=== PATIENT | female | born 1960 | race Caucasian/White ===

== ENCOUNTER → 2021-05-09 | Outpatient (CLI) | payer SELFPAY ==
--- NOTE | 2021-05-09 12:00 | EMB_PTH ---
PATIENT: ANN PADILLA LOC: [facility] U#:[id number] AGE/SX: 61/F ROOM: RE05/09/[address]: Dr. Yoon Epps DO : 1960 BED: DIS: 05/09/2021 SPEC #: [id number] RECD: 05/09/21 16:02 STATUS: JOSEPH BRITTANY #: [id number] RAYSHAWN: 05/09/21 12:[address]: Yoon Epps DEPT: SURGICAL PATHOLOGY RECD BY: Marina Rascon ENTERED: 05/10/21 08:27 SP TYPE: ENDOM BX/C LUIS MANUEL DR: Dr. Lulu Conteh DO Tissues: Endometrium, NOS Procedures: Surgery Specimen Level IV HEADER OPERATION: Endometrial biopsy PRE-OP DIAGNOSIS: PMB TISSUE SUBMITTED: Endometrial biopsy MICROSCOPIC DIAGNOSIS Endometrial biopsy: Disordered proliferative endometrium. SJ:martina 05/14/2021 MICROSCOPIC DESCRIPTION Slides are reviewed. GROSS DESCRIPTION Received is one container labeled with the patient's name and not further designated. The specimen consists of multiple irregular fragments of light to dark guallpa soft tissue that in aggregate measure 3 x 2.2 x 0.1 cm. The specimen is totally submitted in one cassette. / AM:martina 05/10/21 TC:5 CPT: 72156
== END | disposition home or self-care (01) ==
LOC: LABSPEC 16:15
PROVIDERS: PCP Family Medicine; Referring Provider Obstetrics & Gynecology; Visit Provider Obstetrics & Gynecology
DX: N95.0 Postmenopausal bleeding (principal)
CPT/HCPCS: 88305

== ENCOUNTER 2022-01-22 07:43 | Day surgery (SDC) | payer SELFPAY, OTHER ==
--- NOTE | 2022-01-22 | EMB_PTH ---
PATIENT: ANN PADILLA LOC: [facility] [place] U#:[id number] AGE/SX: 61/F ROOM: RE01/22/[address]: Dr. Kenna Beverly MD : 1960 BED: DIS: 01/22/2022 SPEC #: [id number] RECD: 01/22/22 10:35 STATUS: JOSEPH REQ #: [id number] RAYSHAWN: 01/22/22 00:[address]: Kenna Beverly DEPT: SURGICAL PATHOLOGY RECD BY: [facility] ENTERED: 01/22/22 11:13 SP TYPE: ENDOM BX/C LUIS MANUEL DR: Dr. Lulu Conteh DO Tissues: A - Endometrium, NOS B - Endometrium, NOS Procedures: Frozen Section (charge) Frozen Section Add'l ([facility]) Surgery Specimen Level IV HEADER OPERATION: Hysteroscopy, D & C PRE-OP DIAGNOSIS: Postmenopausal bleeding, [address] scan TISSUE SUBMITTED: A - Endometrial curettings, frozen section, B - Endometrial curettings FROZEN SECTION DIAGNOSIS Endometrium, curettings: Simple hyperplasia with focal complex hyperplasia without atypia. No evidence of carcinoma. AM:martina 01/22/2022 Case has been reviewed in consultation with Dr. Chow who concurs with the above diagnosis. IDC:BIJAL MICROSCOPIC DIAGNOSIS A. Endometrium, curettings: Simple and focal complex hyperplasia without atypia. B. Endometrium, curettings: Simple and focal complex hyperplasia without atypia. AM:martina 01/23/2022 COMMENT Reference is made to the patient's previous endometrial biopsy from 2020 ([id number]) in which disordered proliferative endometrium was identified. Case has been reviewed in consultation with Dr. Chow who concurs with the above diagnosis. IDC:BIJAL MICROSCOPIC DESCRIPTION Slides are reviewed. GROSS DESCRIPTION A - Received fresh for frozen section diagnosis labeled with the patient's name is a specimen designated endometrial curettings. The specimen consists of multiple fragments of hemorrhagic soft tissue measuring 5 x 3 x 0.2 cm. The entire specimen is submitted for frozen section diagnosis in two cassettes. / AM:martina 01/22/2022 B - Received in fixative is one container labeled with the patient's name and designated endometrial curettings. The specimen consists of multiple irregular fragments of pink soft tissue that in aggregate measure 1.5 x 1 x 0.2 cm. The specimen is totally submitted in one cassette. / SJ:martina 01/22/2022 TC:5 CPT: 13549 x2, 30851, 63093
[2022-01-22 08:19] VITALS: BP 147/99; PULSE 97; RESP 18; TEMP 36.3; O2SAT 96; BMI 40.8
[2022-01-22] MEDS: Lactated Ringers 1,000 ML 15 ML IV (08:25)
--- NOTE | 2022-01-22 09:55 | PCM.HP.BLA ---
History and Physical MR#: [id number] Acct: [id number] Name:ANN CARLOS Rep #: [id number] : 1960 ? ? Provider: Dr. Kenna Beverly MD Age/Sex:? 61/F ? ? Location: [facility] [place] Status: Signed Intake Vital Signs ? 01/08/2213:31 01/08/2213:35 Height 5 ft 1 in 5 ft 1 in Weight: ? 217 lb BMI ? 41.0 Intake Visit Reasons:?discuss D&C, pt bleeding again Chief Complaint: surgical consult Siding Stapler Required: No Is patient in pain?: No Allergies No Known Allergies Allergy (Verified 05/09/21 11:50) Medications lisinopril 10 mg tablet 10 mg PO DAILY 05/09/21 [History Confirmed 01/08/22] megestrol 40 mg tablet 40 mg PO .COMPLEX #45 tabs 11/23/21 [Rx] Is last menstrual period known: No Post menopausal: Yes Patient : No [facility] Medical History?(Updated 01/08/22 @ 13:[address] Kenna Beverly MD) Hypertension Family History? Father Heart diseaseMother CVA (cerebral vascular accident) Social History? Smoking Status:? Never smoker alcohol intake:? never substance use type:? does not use caffeine:? Yes what type of physical activity do you participate in:? none additional social history:? - Brooks HPI discuss D&C, pt bleeding again Details: ANN PADILLA is a 61 year old who presents for persistent bleeding postmenopausal.? she had a previous biopsy that showed a nl emb.? she is still having bleeding and had a ct scan that showed a thickened 2 cm lining.? she has had some spotting to heavier bleeding at times more weeks.? she had bleeding heavy enough they went to the ER in the November. Pregancy History ? ? ? 8 ? Elective abortions ? Hx Para ? ? ? 6 ? Spontaneous abortions ? Hx # Term Pregnancies ? Ectopic pregnancies ? Hx # Pregnancies ? Multiple births ? # of living children ? ROS Const Constitutional: Denies fatigue, fever(s), headache(s), increased appetite, poor appetite, weight gain or weight loss Cardio Card: Denies chest pain Resp Resp: Denies cough or dyspnea GI GI: Reports as per HPI; Denies abdominal pain, constipation, nausea or vomiting : Reports as per HPI, urinary incontinence and vaginal discharge; Denies difficulty voiding, dysuria, nipple discharge, urinary frequency, urinary hesitancy, urinary urgency, vaginal dryness, vaginal odor or vaginal pruritus Skin Skin/Breast: Denies change in hair, breast mass, breast pain, breast skin changes or nipple discharge Exam Const General: cooperative, healthy appearing, comfortable, no acute distress and well developed Nutritional Appearance: average body habitus Orientation: alert HENRI Head: normal to inspection and normocephalic Neck Neck: normal visual inspection and trachea midline Thyroid: thyroid normal Resp Effort & Inspection: normal respiratory effort GI Inspection: normal to inspection and non-distended Palpation: soft and no hepatosplenomegaly Skin General: no rashes or lesions noted Coding Level of Care Code Off vis,est,level 4 Diagnoses Postmenopausal bleeding? N95.0 Assessment and Plan Assessment and Plan (1) Postmenopausal bleeding: ?Status:?Acute ?Comment: [address] scan, persistent. plan d and c hysteroscopy Plan After discussing the patient's diagnosis and treatment plan options, patient wishes to proceed with surgical management.? I have discussed with the patient the risks, benefits, and alternatives of the procedure which include but are not limited to risks of anesthesia, bleeding, infection, possible damage to bowel, bladder, or surrounding vasculature which could lead to additional surgery to evaluate any complications.? Patient agrees to procedure and wishes to proceed.? ACOG/uptodate references given for additional information regarding procedure.? UPDATE- I have seen the patient and performed any clinically relevant updates to the history and physical exam. Kenna Beverly MD
--- NOTE | 2022-01-22 10:30 | OP.PCM_ITS ---
Problems Associated Problem List Diagnoses (1) Postmenopausal bleeding: Report of Operation Date of Procedure: 01/22/22 Pre-Operative Diagnosis: see problem list Post-Operative Diagnosis: same Surgery/Procedure Performed:: D&C hysteroscopy Description of Surgical Findings:: global pathology thickened lining polypoid very soft uterus with fleshy, feathery tissue globally, suspicious for cancer superintendent oil well services: None Type of Anesthesia: Local MAC Special Medications: floseal Specimen's removed: EMC Drains: none Estimated Blood Loss (mL): 50 Fluids Replaced: crystalloid Description of Procedure: Patient was prepped and draped in a normal sterile fashion under MAC anesthesia. A weighted speculum was placed in the vagina and the anterior lip of the cervix was grasped with a single-tooth tenaculum. Cervix was progressively dilated to allow passage of a 5 mm hysteroscope. The lining was fully visualized and noted to have global thickening with significantly abnormal in appearance lining . Uterine sounded to 10 cm. Curettage was performed and large amount of tissue removed , sent to pathology. due to the concern for cancer and risk for bleeding postop, frozen specimen sent and floseal placed inside the lining of the uterus. All instruments were removed from the vagina and excellent hemostasis was noted. Patient was awoken and taken to recovery in stable c ondition. Grafts/Implants Used: none Complications none Admit VTE Documentation VTE Present on Admission: No VTE Mechan Device Prophylaxis: SCD's Multi Select Codes Urinary/Genital Urinary/Genital CPT Codes: 83208 Hysteroscopy,EMC, Polypectomy
--- NOTE | 2022-01-22 10:34 | DCINST_ITS ---
Discharge Instructions Procedure D&C Diet Discharge Diet: No restrictions Activity Discharge Activity: Return to Normal Activity, May Shower and May Take a Tub Bath (after 1 week) May resume sexual activity in: 1-2 weeks Weight Bearing Status: Weight bearing as tolerated Lifting Restrictions: none Dressing / Incision Call your doctor if you observe: Fever of 101 or Higher, Using more than 1 pad per hour, Shortness of breath and Uncontrolled pain Follow Up Care Please Follow Up With: Kenna Beverly MD When: Call [phone] to schedule appointment. Test Results: Test results from this visit will be discussed in further detail at your follow- up appointment, if applicable. Discharge Plan Admission Primary Reason for Your Visit: d and c Attending Provider: Kenna Beverly Primary Care Provider: Lulu Conteh Discharge Orders/Prescriptions Prescriptions: No Action lisinopril 10 mg tablet 10 mg PO DAILY Referrals / Follow Up: Lulu Conteh DO [Primary Care Provider] - Disposition Disposition (needs filled in before D/C Order can be placed): Home, Self Care
[2022-01-22 10:36] VITALS: BP 139/86; BP 147/99; PULSE 88; RESP 16; TEMP 36.6; O2SAT 98
[2022-01-22 10:41] VITALS: BP 133/86; BP 147/99; PULSE 85; RESP 16; O2SAT 99
[2022-01-22 10:46] VITALS: BP 145/79; BP 147/99; PULSE 83; RESP 16; O2SAT 99
[2022-01-22 10:51] VITALS: BP 130/82; BP 147/99; PULSE 81; RESP 16; TEMP 36.5; O2SAT 99
[2022-01-22 12:05] VITALS: BP 113/58; BP 147/99; PULSE 78; RESP 14; TEMP 36.1; O2SAT 97
== END 2022-01-22 13:38 | disposition home or self-care (01) ==
LOC: SDC 07:52 → AC 07:53
PROVIDERS: PCP Family Medicine; Referring Provider Obstetrics & Gynecology; Visit Provider Obstetrics & Gynecology
PROC: 0UB98ZZ Excision of Uterus, Via Natural or Artificial Opening Endoscopic (ICD-10-PCS; CPT 58558; principal; 2022-01-22 09:15)
DX: N85.01 Benign endometrial hyperplasia (principal); I10 Essential (primary) hypertension
CPT/HCPCS: 58558; 86850; 86900; 86901; 88305; 88331; 88332; J7120; J2405

== ENCOUNTER 2022-02-21 12:32 | Inpatient (IN) | payer OTHER, SELFPAY ==
[2022-02-21] VITALS (12 sets, daily range): BP systolic 113–150; BP diastolic 69–106; PULSE 99–138; RESP 18–32; TEMP 36.2–38.1; O2SAT 94–99; BMI 47.2; BMI 40.1
[2022-02-21 13:40] LABS: Absolute Lymphocyte Count 1.23 X10^3/uL (0.83-4.51); Absolute Neutrophil Count 26.9 X10^3/uL (2.0-7.7); Basophil# 0.08 X10^3/uL; Basophil% 0.3 % (0-1); Eosinophil# 0.11 X10^3/uL; Eosinophils% 0.4 % (0-5); Hemoglobin 13.3 g/dL (12.0-15.0); Lymphocyte # 1.23 X10^3/ul (0.83-4.51); Mean Corp Hgb Conc 32.4 g/dL (32-36); Mean Corpuscular Hgb 29.9 pg (27.0-32.0); Mean Corpuscular Volume 92.1 fL (81-99); Mean Platelet Vol. 10.2 fl (6.2-12.0); Monocyte# 2.09 X10^3/uL; Monocyte% 6.8 % (0-10); NRBC Flagged by Analyzer 0 % (0-5); Neutrophil % 87.4 % (47-70); POSITIVE COUNT YES; POSITIVE DIFFERENTIAL YES; Platelet Count 278 K/mm3 (150-450); RBC Distribution Width CV 15.5 % (11.6-14.6); RBC Distribution Width SD 53.1 fl (35.1-43.9); Red Blood Count 4.45 M/mm3 (4.2-5.4); White Blood Count 30.7 K/mm3 (4.4-11.0)
[2022-02-21 13:47] LABS: Differential Indicated SCAN CRITERIA MET
--- NOTE | 2022-02-21 13:53 | EX.ED.DYSGE1 ---
HPI History of Present Illness Chief Complaint: Complaint Detail of Chief Complaint: Dysuria, weakness Informant: patient Narrative Narrative: Patient presents to the emergency department with complaint of dysuria that been going on for about a week and a half. Patient was being seen at preadmission testing for preop labs as she is scheduled to have a hysterectomy with Dr. Samuel Vaughan. Patient was noted to have a urinary tract infection and sent to the emergency department. Patient has had some increased confusion over the last several days per her . Patient very weak. She had a fever last night. Patient denies chest pain or abdominal pain. Patient denies back pain. Prior similar symptoms: No PFSH PFSH Medical History (Updated 02/21/22 @ 15:[address] Yamini Graff, DO) Depression Hypertension Non-smoker Walker as ambulation aid Wears dentures Home Medications lisinopril 10 mg tablet 10 mg PO DAILY 05/09/21 [History Last Taken Unknown] Allergy/AdvReac Type Severity Reaction Status Date / Time No Known Allergies Allergy Verified 02/21/22 12:39 Family History Father Heart disease Mother CVA (cerebral vascular accident) Surgical History (Updated 02/21/22 @ 15:[address] Lori Cool MD) H/O dilation and curettage Social History (Updated 02/21/22 @ 15:[address] Lori Cool MD) household members: spouse Smoking Status: Never smoker alcohol intake: never substance use type: does not use caffeine: Yes what type of physical activity do you participate in: none additional social history: - Brooks ROS ROS ED Review of Systems ROS Unobtainable: other Constitutional Constitutional ED: Reports lethargy; Denies chills, fever(s), sweats or weight loss Eyes Eyes: Denies blurry vision, change in vision or diplopia ENT ENT ED: Denies rhinorrhea or sore throat Cardiovascular Cardiovascular: Denies chest pain, orthopnea or racing heartbeat Respiratory/Chest Respiratory/Chest: Denies cough, dyspnea, dyspnea on exertion, orthopnea or sputum Gastrointestinal Gastrointestinal: Denies abdominal pain, diarrhea, nausea or vomiting Genitourinary Genitourinary ED: Reports dysuria; Denies hematuria or urinary frequency Musculoskeletal Musculoskeletal: Denies arthralgias, back pain, myalgias or neck pain Integumentary Denies abscess, Abrasions or rash Neurologic Neurologic: Reports weakness; Denies headache(s) Psychiatric Psychiatric: Denies anxiety, depression or suicidal thoughts Endocrine Endocrinology: Denies polydipsia, polyphagia or polyuria Hematologic/Lymphatic Hematologic/Lymphatic: Denies easy bleeding, easy bruising or lymphadenopathy Allergic/Immunologic Allergic/Immunologic ED: Denies mouth swelling, tongue swelling or urticaria EXAM Physical Exam Const Vital Signs: 02/21/22 12:34 02/21/22 12:56 02/21/22 14:15 Temperature 97.2 F L 97.9 F 98.6 F Temperature Source Temporal Temporal Temporal Pulse Rate 120 H 138 H 104 H Respiratory Rate 18 26 H 20 H Blood Pressure 131/83 H 138/94 H 136/82 H Blood Pressure Mean 99 108 100 Pulse Ox 97 97 97 Oxygen Delivery Method Room Air Room Air Room Air 02/21/22 14:15 02/21/22 15:12 02/21/22 15:12 Temperature 98.6 F 98.8 F Temperature Source Temporal Temporal Pulse Rate 104 H 106 H 106 H Respiratory Rate 20 H 24 H 24 H Blood Pressure 136/82 H 125/85 H 125/85 H Blood Pressure Mean 100 98 98 Pulse Ox 97 96 96 Oxygen Delivery Method Room Air Room Air Room Air Positive well nourished and well developed General Appearance ED: well developed and NAD HEENT Reports TM's clear and dry mucous membranes normocephalic and atraumatic; Negative for trauma or tenderness Tympanic Membrane ED: Yes TM's clear Mouth ED: Yes dry mucous membranes Mouth: dry mucous membranes Eyes PERRL and EOMs intact bilaterally General Eye ED: Negative for pale conjunctiva or scleral icterus Neck no lymphadenopathy, supple and no JVD General: Negative for tenderness Chest Wall inspection of chest normal and palpation of chest normal Chest: Negative for tenderness Resp normal respiratory effort and clear to auscultation bilaterally Effort and Inspection: Negative for respiratory distress or pain with movement Auscultation: Negative for rhonchi, wheezes or diminished lung sounds Cardio regular rhythm, S1 normal heart sound, S2 normal heart sound and no murmurs; Negative for regular rate Rate: tachycardic Peripheral Pulses: pulses 2+ throughout GI normal to inspection, nondistended, normoactive bowel sounds, soft to palpation, non-tender, non-distended and no masses Back/Spine no CVA tenderness and no thoracic nor lumbar tenderness Extremity normal to inspection General Extremety ED: Negative for edema General Extremity: Negative for edema Neuro oriented x3, CN's II-XII intact bilaterally, no sensory deficits noted and gait normal Sensorium / Orientation: awake, alert, oriented to person, oriented to place and oriented to time Motor Exam: strength 5/5 throughout and strength abnormal Psych mental status grossly normal Skin no rashes or lesions noted and no wounds MDM MDM MDM Narrative Medical decision making narrative: IV line established on arrival. Patient was given a liter mostly of fluid bolus. Patient started on Rocephin 1 g IV. Patient noted to have an elevated white count of 30,000. Lactate was 1.5. Chemistries unremarkable. BUN was 34 and creatinine 2.3. Case discussed with hospitalist will evaluate patient for admission for diagnosis of UTI, sepsis, DANNY. Lab Data Attestation: I reviewed the patient's lab results. Labs: Laboratory Results - last 24 hr 02/21/22 02/21/22 02/21/22 13:30 13:30 13:30 WBC 30.7 H* RBC 4.45 Hgb 13.3 Hct 41.0 MCV 92.1 MCH 29.9 MCHC 32.4 RDW Std Deviation 53.1 H RDW Coeff of Gauri 15.5 H Plt Count 278 MPV 10.2 Immature Gran % (Auto) 1.100 H Neut % (Auto) 87.4 H Lymph % (Auto) 4.0 L [place] % (Auto) 6.8 Eos % (Auto) 0.4 Baso % (Auto) 0.3 Absolute Neuts (auto) 26.9 H Absolute Lymphs (auto) 1.23 Nucleated RBC % 0 Diff Path Review May foll Sodium 137 Potassium 4.7 Chloride 106 Carbon Dioxide 24.0 Anion Gap 7 BUN 34 H Creatinine 2.30 H Estim Creat Clear Calc 18.89 Est GFR (MDRD) Af Amer 28 L Est GFR (MDRD) Non-Af 23 L BUN/Creatinine Ratio 14.8 Glucose 157 H Lactic Acid 1.5 Calcium 10.3 H EKG Initial EKG: Attestation: I personally reviewed and interpreted this EKG as follows: Comments: Sinus rhythm with a ventricular rate of 148 bpm with no acute ST segment changes Discharge Plan Triage Chief Complaint: Complaint ED Provider: Yamini Graff Dx/Rx/DC Orders Clinical Impression: UTI (urinary tract infection), DANNY (acute kidney injury), Sepsis, Leukocytosis Prescriptions: No Action lisinopril 10 mg tablet 10 mg PO DAILY Primary Care Provider: Lulu Conteh Referrals: Lulu Conteh DO [Primary Care Provider] - Disposition Disposition: Acute Care Hospital [facility]
[2022-02-21 14:02] LABS: Anion Gap 7 (5-15); BUN 34 mg/dL (7-18); BUN/Creat Ratio 14.8 RATIO (10-20); Calcium,Total 10.3 mg/dL (8.5-10.1); Chloride 106 mmol/L (98-107); EST Glomerular Filtration Rate 23 mL/min (>60); Est Glom Filt Rate - Afr Amer 28 mL/min (>60); Estimated Creatinine Clearance 18.89 ml/min; Glucose 157 mg/dL (74-106); Potassium 4.7 mmol/L (3.5-5.1); Sodium Level 137 mmol/L (136-145)
[2022-02-21 14:07] LABS: Lactic Acid 1.5 mmol/L (0.4-1.9)
[2022-02-21] MEDS: 0.9% Normal Saline 1,000 ML 1000 ML IV (14:16)
[2022-02-21] MEDS: Ceftriaxone 1 GM/50 ML BAG IV (14:16)
[2022-02-21] MEDS: 0.9% Normal Saline 1,000 ML 150 ML IV (15:11)
--- NOTE | 2022-02-21 15:38 | PCM.HP.STD ---
HPI - General General Date of Admission: 02/21/22 Date of Service: 02/21/22 Chief Complaint: Encephalopathy, UTI HPI Narrative The patient is a 61 y/o F w/ PMHx: Depression and Anxiety, HTN, Hx Postmenopausal bleeding s/p D+C hysteroscopy who presents to the [facility] ED on 02/21/22 with history of onset of increased confusion, fatigue, malaise in addition to mild confusion over the last 3-4 days with reported dysuria ongoing x 1-1.5 weeks with no fever or chills reportedly however she does admit to some nausea without emesis and decreased oral intake. Patient spouse had been applying topical unclear type of ointments to the urethral area to help with the burning sensation. Spouse notes that they were present for a preop evaluation for planned hysterectomy and her urinalysis appeared significantly concerning coupled with her ill appearance and encephalopathy prompted referral to the ED for evaluation. Work-up in the ED included T98.8, heart rate 106, BP 125/85, respiratory rate 24, 96% on room air, CBC with WC 30.7, hemoglobin 13.3, platelet 278 with left shift, BUN/creatinine 34/2.30, glucose 157, lactic acid 1.5, urine culture pending per ED, blood culture x2 pending per ED. [facility] Medical History Depression Hypertension Non-smoker Walker as ambulation aid Wears dentures Home Medications lisinopril 10 mg tablet 10 mg PO DAILY 05/09/21 [History Last Taken 02/20/22] Allergy/AdvReac Type Severity Reaction Status Date / Time No Known Allergies Allergy Verified 02/21/22 12:39 Family History Father Heart disease Mother CVA (cerebral vascular accident) Surgical History H/O dilation and curettage Social History (Updated 02/21/22 @ 15:[address] Lori Cool MD) household members: spouse Smoking Status: Never smoker alcohol intake: never substance use type: does not use caffeine: Yes what type of physical activity do you participate in: none additional social history: - Brooks KAMARA ANH Narrative Admission Review of Systems: CONSTITUTIONAL: No weight loss, fever, chills, + weakness or fatigue. HEENT: Eyes: No visual loss, blurred vision, double vision or yellow sclerae. Ears, Nose, Throat: No hearing loss, sneezing, congestion, runny nose or sore throat. SKIN: No rash or itching, lesions, wounds. CARDIOVASCULAR: No chest pain, chest pressure or chest discomfort, palpitations, edema, orthopnea, syncopal events. RESPIRATORY: No shortness of breath, cough or sputum, wheezing, hemoptysis. GASTROINTESTINAL: + anorexia, nausea without vomiting. No diarrhea, abdominal pain, melena, BRBPR. GENITOURINARY: + dysuria, frequency. No urgency or retention. NEUROLOGICAL: + Confusion. No headache, dizziness, syncope, paralysis, ataxia, numbness or tingling in the extremities, focal weakness, change in bowel or bladder control, seizure. MUSCULOSKELETAL: + muscle, back pain, joint pain or stiffness. HEMATOLOGIC: No anemia, bleeding or bruising. LYMPHATICS: No enlarged nodes. No history of splenectomy. PSYCHIATRIC: + From reaction suspect underlying possible depression or anxiety. ENDOCRINOLOGIC: No reports of sweating, cold or heat intolerance. No polyuria or polydipsia. ALLERGIES: No history of asthma, hives, eczema or rhinitis. Vital Signs Vital Signs Vital Signs: 02/21/22 12:34 02/21/22 12:56 02/21/22 14:15 Temperature 97.2 F L 97.9 F 98.6 F Temperature Source Temporal Temporal Temporal Pulse Rate 120 H 138 H 104 H Respiratory Rate 18 26 H 20 H Blood Pressure 131/83 H 138/94 H 136/82 H Blood Pressure Mean 99 108 100 Pulse Ox 97 97 97 Oxygen Delivery Method Room Air Room Air Room Air 02/21/22 14:15 02/21/22 15:12 02/21/22 15:12 Temperature 98.6 F 98.8 F Temperature Source Temporal Temporal Pulse Rate 104 H 106 H 106 H Respiratory Rate 20 H 24 H 24 H Blood Pressure 136/82 H 125/85 H 125/85 H Blood Pressure Mean 100 98 98 Pulse Ox 97 96 96 Oxygen Delivery Method Room Air Room Air Room Air Weight Weight: 250 lb Body Mass Index (BMI) 47.2 Physical Exam Narrative Physical Examination: General: Awake, alert, oriented to self, place and recent events but is significantly fatigued and was notably encephalopathic previously per discussion with spouse, following commands, laying in the ED bed, ill-appearing. Skin: Normal color, normal turgor, no icterus, no cyanosis. HEENT: AT/NC, EOMI, PERRLA, dry MM, no carotid bruits or JVD noted. Lungs: Diminished, greater bases, decreased effort, some upper airway forced exhalation sounds but these are only limited to the air and the oropharynx is appropriate, no rales, ronchi or wheezing in the lung rodriguez. Heart: Tachycardic with regular rhythm; no gallop, rub audible. Abdomen: Soft, obese, NTTP, ND, moderately hyperactive BS, no HSM. Extremities: No cyanosis, clubbing, or edema. Neurological: Patient awake, alert, oriented as noted, cognitive function improving, suspect nearing baseline intact; pupils equally reactive to light and accommodation, cranial nerves II-XII grossly normal, moving all 4 extremities, no focal deficits, strength moderately to severely global decrease secondary to acute presentation. Psychiatric: Affect appears anxious, tearful when discussed necessity of admission, do suspect possibly underlying depression or anxiety based on patient's reactions and 's discussion. Results Lab / Micro Data Result Diagrams: 02/21/22 13:30 02/21/22 13:30 Labs: Laboratory Results - last 24 hr 02/21/22 13:30: WBC 30.7 H*, RBC 4.45, Hgb 13.3, Hct 41.0, MCV 92.1, MCH 29.9, MCHC 32.4, RDW Std Deviation 53.1 H, RDW Coeff of Gauri 15.5 H, Plt Count 278, MPV 10.2, Immature Gran % (Auto) 1.100 H, Neut % (Auto) 87.4 H, Lymph % (Auto) 4.0 L, Yates % (Auto) 6.8, Eos % (Auto) 0.4, Baso % (Auto) 0.3, Absolute Neuts (auto) 26.9 H, Absolute Lymphs (auto) 1.23, Nucleated RBC % 0, Diff Path Review September02/21/22 13:30: Sodium 137, Potassium 4.7, Chloride 106, Carbon Dioxide 24.0, Anion Gap 7, BUN 34 H, Creatinine 2.30 H, Estim Creat Clear Calc 18.89, Est GFR (MDRD) Af Amer 28 L, Est GFR (MDRD) Non-Af 23 L, BUN/Creatinine Ratio 14.8, Glucose 157 H, Calcium 10.3 H 02/21/22 13:30: Lactic Acid 1.5 Assessment & Plan Assessment/Plan (1) UTI (urinary tract infection): (2) DANNY (acute kidney injury): (3) Sepsis: PLAN: Plan The patient is a 61 y/o F w/ PMHx: Depression and Anxiety, HTN, Hx Postmenopausal bleeding s/p D+C hysteroscopy who presents to the [facility] ED on 02/21/22 with history of onset of increased confusion, fatigue, malaise in addition to mild confusion over the last 3-4 days with reported dysuria ongoing x 1-1.5 weeks with no fever or chills reportedly however she does admit to some nausea without emesis and decreased oral intake. #1. Acute Encephalopathy secondary to Acute Sepsis secondary to Acute Urinary Tract Infection: Patient with notably tachycardia, tachypnea, DANNY, evidence UTI as source with encephalopathy concurrently. Will admit to PCU, UA upon ED evaluation remarkable, pending UCx, continue IVFs, monitor I/Os, continue IV Rocephin w/ transition as able pending sensitivities and speciation. Bld cx x 2 obtained in the ED. PT/OT/CM consultations for discharge planning. #2. Acute kidney injury: Secondary to acute presentation #1. Admission BUN/Cr 34/2.30, prior baseline creatinine noted to be most recently 01/18/2022 1.01 obtained from [facility] record. Will hydrate, hold nephrotoxic medications and repeat chemistry in AM. If no improvement would plan FeNa and renal ultrasound assessment. #3. Hyperglycemia: Patient with admission glucose 157, no diabetic history, will obtain hemoglobin A1c to be cautious. #4. Hypertension: We will hold patient home lisinopril regimen given DANNY, resume once renal function appropriate, as needed IV hydralazine in interim. #5. Morbid Obesity: Weight loss and lifestyle changes encouraged. #6. History of endometrial hyperplasia: Status post prior D&C hysteroscopy with planned eventual hysterectomy with as noted day of presentation preop evaluation for the procedure referred to the ED given acute presentation. #7. DVT prophylaxis: SCDs, heparin. #8. CODE status: Patient does not have healthcare power of assistant county attorney nor living will in place. Given her severe ill appearance, discussed CODE status at length including difference between FULL code, DNR-CCA and DNR-CC status. Following discussions about the differences in these status, requested Full Code status. Advanced Care Planning Face to Face Time: 16 minutes. Charges/Coding Visit Charges Inpatient E&M: 92910 Init Hosp L3 Procedures Hospitalists Procedures: 91475 Advncd Care Plan 30 Min
[2022-02-21 15:53] LABS: Mucous, Urine 0 SEEN /hpf (<or=2+)
[2022-02-21 16:03] LABS: Color, Urine Yellow (Yellow); Glucose, Dipstick Normal (Normal); Ketone-Dipstick Negative (Negative); Leukocyte Esterase-Dipstick 500 /ul (Negative); Nitrite-Dipstick Positive (Negative); Occult Blood-Urine 150 /ul (Negative); Protein-Dipstick 100 mg/dl (Negative); Urine Bilirubin Dipstick Negative (Negative); Urine Clarity Cloudy (Clear); Urine Urobilinogen Normal (Normal); Urine pH 6.5 (5.0 - 8.0)
[2022-02-21 16:28] LABS: Bacteria 4+ /hpf (None Seen); Red Blood Cells-Urine 25-50 SEEN /hpf (0-5); White Blood Cells >100 SEEN /hpf (0-5)
[2022-02-21 16:30] LABS: Coarse Granular Cast 5-10 SEEN /lpf (0-5 /lpf); Squamous Epithelial Cells - UA 10-25 SEEN /hpf (5-10)
[2022-02-21] MEDS: 0.9% Normal Saline 1,000 ML 999 ML IV (17:03)
[2022-02-21] MEDS: 0.9% Normal Saline 1,000 ML 125 ML IV (18:10)
[2022-02-21] MEDS: Heparin Injection (Vial) 5,000 UNIT/ML VIAL 5000 UNIT SC (22:43)
[2022-02-21] MEDS: Acetaminophen 325 MG Tablet 650 MG PO (22:52)
[2022-02-22] VITALS (19 sets, daily range): BP systolic 110–148; BP diastolic 64–122; PULSE 74–104; RESP 22–32; TEMP 36.3–37.3; O2SAT 94–97
[2022-02-22] MEDS: Ondansetron 4 MG/2 ML Vial IV (02:08)
[2022-02-22] MEDS: 0.9% Normal Saline 1,000 ML 125 ML IV ×3 (02:12→17:28)
[2022-02-22 06:35] LABS: Absolute Lymphocyte Count 1.36 X10^3/uL (0.83-4.51); Absolute Neutrophil Count 19.7 X10^3/uL (2.0-7.7); Basophil# 0.05 X10^3/uL; Basophil% 0.2 % (0-1); Hematocrit 32.8 % (37-47); Hemoglobin 10.6 g/dL (12.0-15.0); Lymphocyte # 1.36 X10^3/ul (0.83-4.51); Lymphocyte % 5.9 % (19-41); Mean Corp Hgb Conc 32.3 g/dL (32-36); Mean Corpuscular Hgb 30.2 pg (27.0-32.0); Mean Corpuscular Volume 93.4 fL (81-99); Mean Platelet Vol. 10.4 fl (6.2-12.0); Monocyte# 1.76 X10^3/uL; Monocyte% 7.6 % (0-10); NRBC Flagged by Analyzer 0 % (0-5); Neutrophil # 19.74 X10^3/uL (2.7-7.7); Neutrophil % 85.3 % (47-70); POSITIVE DIFFERENTIAL YES; Platelet Count 243 K/mm3 (150-450); RBC Distribution Width CV 15.7 % (11.6-14.6); RBC Distribution Width SD 54.3 fl (35.1-43.9); Red Blood Count 3.51 M/mm3 (4.2-5.4); White Blood Count 23.2 K/mm3 (4.4-11.0)
[2022-02-22 07:11] LABS: ALB/GLOB Ratio 0.4 RATIO (0.9-2.4); AST(SGOT) 36 U/L (15-37); Alanine Aminotransfer ALT/SGPT 37 U/L (13-56); Albumin, Serum 1.8 g/dL (3.2-5.0); Alkaline Phosphatase 95 U/L (45-117); Anion Gap 8 (5-15); BUN 32 mg/dL (7-18); BUN/Creat Ratio 17.1 RATIO (10-20); Calcium,Total 8.5 mg/dL (8.5-10.1); Chloride 113 mmol/L (98-107); Creatinine, Serum 1.87 mg/dL (0.55-1.02); EST Glomerular Filtration Rate 29 mL/min (>60); Est Glom Filt Rate - Afr Amer 35 mL/min (>60); Estimated Creatinine Clearance 23.24 ml/min; Globulin 4.7 g/dL (2.2-4.2); Glucose 126 mg/dL (74-106); Potassium 4.5 mmol/L (3.5-5.1); Protein, Total 6.5 g/dL (6.4-8.2); Sodium Level 141 mmol/L (136-145)
[2022-02-22 07:16] LABS: Differential Indicated SCAN CRITERIA MET
--- NOTE | 2022-02-22 08:26 | PN.HOSP_ITS ---
Subjective Subjective Patient is a 61-year-old female admitted with generalized malaise and some confusion and assessment of acute cystitis made admitted for further management Objective Data Objective Data Vital Signs: Vital Signs Temp Pulse Resp BP Pulse Ox O2 Del Method 98.0 F 88 28 H 134/78 H 96 Room Air 02/22/22 07:40 02/22/22 07:40 02/22/22 07:40 02/22/22 07:40 02/22/22 07:40 02/22/22 07:40 Oxygen Delivery Method Room Air Weight: 98.8 kg Body Mass Index (BMI) 40.1 Intake & Output: Intake and Output for Last 24 Hours 02/20/22 02/21/22 02/22/22 23:59 23:59 23:59 Intake Total 2440 / 2440 1000 / 1000 Output Total 150 / 150 200 / 200 Balance 2290 / 2290 800 / 800 Lab / Micro Data Result Diagrams: 02/22/22 06:00 02/22/22 06:00 Labs: Laboratory Results - last 24 hr 02/21/22 13:30: WBC 30.7 H*, RBC 4.45, Hgb 13.3, Hct 41.0, MCV 92.1, MCH 29.9, MCHC 32.4, RDW Std Deviation 53.1 H, RDW Coeff of Gauri 15.5 H, Plt Count 278, MPV 10.2, Immature Gran % (Auto) 1.100 H, Neut % (Auto) 87.4 H, Lymph % (Auto) 4.0 L , Forest % (Auto) 6.8, Eos % (Auto) 0.4, Baso % (Auto) 0.3, Absolute Neuts (auto) 26.9 H, Absolute Lymphs (auto) 1.23, Nucleated RBC % 0, Diff Path Review September02/21/22 13:30: Sodium 137, Potassium 4.7, Chloride 106, Carbon Dioxide 24.0, Anion Gap 7, BUN 34 H, Creatinine 2.30 H, Estim Creat Clear Calc 18.89, Est GFR (MDRD) Af Amer 28 L, Est GFR (MDRD) Non-Af 23 L, BUN/Creatinine Ratio 14.8, Glucose 157 H, Calcium 10.3 H 02/21/22 13:30: Lactic Acid 1.5 02/21/22 15:15: Urine Color Yellow, Urine Clarity Cloudy, Urine pH 6.5, Ur Specific Martin 1.010, Urine Protein 100 H, Urine Glucose (UA) Normal, Urine Ketones Negative, Urine Occult Blood 150 H, Urine Nitrite Positive H, Urine Bilirubin Negative, Urine Urobilinogen Normal, Ur Leukocyte Esterase 500 H, Urine RBC 25-50 SEEN, Urine WBC >100 SEEN, Ur Squamous Epith Cells 10-25 SEEN, Urine Bacteria 4+, Coarse Granular Casts 5-10 SEEN, Urine Mucus 0 SEEN 02/22/22 06:00: WBC 23.2 H, RBC 3.51 L, Hgb 10.6 L, Hct 32.8 L, MCV 93.4, MCH 30.2, MCHC 32.3, RDW Std Deviation 54.3 H, RDW Coeff of Gauri 15.7 H, Plt Count 243, MPV 10.4, Immature Gran % (Auto) 1.000 H, Neut % (Auto) 85.3 H, Lymph % (Auto) 5.9 L, Forest % (Auto) 7.6, Eos % (Auto) 0.0, Baso % (Auto) 0.2, Absolute Neuts (auto) 19.7 H, Absolute Lymphs (auto) 1.36, Nucleated RBC % 0 02/22/22 06:00: Sodium 141, Potassium 4.5, Chloride 113 H, Carbon Dioxide 20.0 L , Anion Gap 8, BUN 32 H, Creatinine 1.87 H, Estim Creat Clear Calc 23.24, Est GFR (MDRD) Af Amer 35 L, Est GFR (MDRD) Non-Af 29 L, BUN/Creatinine Ratio 17.1, Glucose 126 H, Calcium 8.5, Total Bilirubin 0.50, AST 36, ALT 37, Alkaline Phosphatase 95, Total Protein 6.5, Albumin 1.8 L, Globulin 4.7 H, Albumin/Globulin Ratio 0.4 L Micro: Microbiology 02/21/22 13:30 Blood Culture (Wb) - Anticubital Left Blood Culture - Preliminary 02/21/22 13:50 Blood Culture (Wb) - Right Forearm Blood Culture - Prelimi nary Physical Exam Narrative GENERAL: Significantly flat affect HEENT: Atraumatic; normocephalic EYES; Anicteric, Normal Conjunctiva NECK; supple, normal thyroid, RESPIRATORY: Diminished to auscultation CARDIOVASCULAR: Regular S1 S2, GI: soft, normoactive bowel sounds, : No Renal angle tenderness; EXTREMITIES: No edema, no clubbing, MUSCULOSKELETAL: no muscle wasting NEURO: Awake; no lateralizing signs. SKIN: No Rash PSYCH; Flat affect Assessment & Plan Assessment/Plan (1) UTI (urinary tract infection): (2) DANNY (acute kidney injury): (3) Sepsis: PLAN: Plan Patient is a 61-year-old female admitted with generalized malaise and some confusion and assessment of acute cystitis made admitted for further management 1. Acute metabolic encephalopathy ? Secondary to acute cystitis admitted to a monitored bed for subsequent management 2. Acute cystitis ? Culture sent, patient started on Rocephin well with resolved 3. Sepsis ? Secondary to acute cystitis patient met criteria with evidence of an infection, WBC count greater than 12 K (23K on admission), tachycardic with heart rate greater than 132 and had evidence of endorgan damage with creatinine being greater than 2 on admission. Patient was managed per protocol. Patient progressed being monitored with serial lactic acid levels 4.Hyperglycemia ? Hemoglobin A1c was ordered to either rule in or rule out diabetes mellitus type 2 5. Essential hypertension ? Patient is on lisinopril this was held given her impaired kidney function, p laced on hydralazine as needed to keep systolic blood pressure less than 160 6. Class III obesity with BMI of 41.2 ? Weight loss advised 7. Acute kidney injury ? Suspected to be secondary to ATN from patient's infection patient on IV fluid with serial monitoring of electrolytes ordered 8. DVT prophylaxis ? SCDs and heparin Charges/Coding Visit Charges Inpatient E&M: 56962 Subs Hosp L3
[2022-02-22 08:38] LABS: Platelet Estimate ADEQUATE (ADEQ); Red Cell Morphology NORM C+C NORMAL (NORM C&C)
[2022-02-22] MEDS: Ceftriaxone 1 GM/50 ML BAG IV (08:58)
[2022-02-22] MEDS: Heparin Injection (Vial) 5,000 UNIT/ML VIAL 5000 UNIT SC ×2 (08:59→21:23)
[2022-02-22 09:18] LABS: Hemoglobin A1c 5.9 % (3.8-5.6)
[2022-02-22 13:10] LABS: Pathologist Review Reviewed
[2022-02-22 13:14] LABS: Pathologist Review Reviewed
--- NOTE | 2022-02-22 15:15 | CASEMGMT ---
Late entry for 02/22/22 @ 1515 RN CHANDA ASSESSMENT 1315: MORRIS ARMAS to room to meet with patient and , Brooks, who is at bedside for initial transition planning/care coordination assessment. MORRIS ARMAS introduced self and role at [facility].? Pt sitting up in recliner chair in no distress at this time.?Pt a poor historian and has been confused. voices understanding and consents to assessment at this time.? All information obtained from . Care providers, pharmacy, and demographics verified/updated at this time. PCP: Dr Lulu Conteh in [place] Specialists: Dr Beverly-HYDROGRAPHIC ENGINEER, Dr Mrak Dos Santos-ortho Preferred [facility]acy: [facility] Insurance: [employer]. states they are self-pay and then they get some reimbursement from [email or web address]. Prescription Benefit:? none Living Will/HPOA:? Pt does not currently have LW or HPOA. LNOK: , Brooks. 6 sons. 2 sons are Richard and Mehul Living Arrangements: Lives w/ and son, Richard, in a [facility] home that is currently under construction. Pt and are staying in the basement. There is access to the basement from outside, with one step to enter. reports pt has had on-going/intermittent confusion over the past year, in which PCP has done some work-up for. He reports that pt was independent w/ADL's up until about 2 weeks ago. states he and Richard work during the day and pt was able to be at home alone until decline 2 wks ago. 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 Son, Mehul, lives about 3 miles away. Since decline, Richard has been coming home from work around noon to check on patient. Pt has worsened over the past 1-2 weeks and has been unable to care for self w/such increased weakness she has been requiring 2 assist w/walking. Transportation: , family DME: ?States has the following DME:? shower chair, rollator, W/C. states plans to install grab bars in bathroom. He states would like to get a BSC. Discussed several locations this can be purchased. also interested in medical alert info. Same provided. Pt had a lift chair, but it is not working. plans to get another one. states pt usually sleeps in the bed. She only slept in recliner chair once or twice the past year. HHC/SNF: Pt has never been to a SNF. does not wish for pt to go to a SNF. She did have HHC about a year ago, but he does not remember name of agency. He thinks they were from [place]. wishes for pt to return home and is interested in HHC. He states they have a lot of family support who lives nearby and they can arrange for someone to stay with patient while and son @ work, so someone is with pt / until pt returns to her baseline. He is also checking into finding and hiring someone who lives nearby who can stay with pt. A list of C providers including quality and resource use data and consistent with the patient?s preferred geographic region, medical needs, and insurance network were provided from the [facility] Guide. 1500: Per Dr Peters, pt may be ready for discharge tomorrow, if cultures come back. MORRIS ARMAS to room to talk w/. has left for awhile, per visitor who is at bedside. Call placed to and he was made aware pt may be ready for discharge tomorrow. MORRIS ARMAS inquired if that would be enough time to make arrangements for someone to stay w/pt. He states We can manage that, stating b/w he and his son, they can alternate days until they make further arrangements. He states he observed pt getting up w/staff from chair to the bed and that she has improved from a few days ago and he feels he and his family can take care of pt @ home. He states he has not looked over the HHC list yet and will be unable to do so until later. MORRIS ARMAS informed him HHC is not able to be arranged over the weekend. He was made aware PCP can set up HHC. He states pt's PCP is who set up HHC for pt last year and he would like to set up HHC thru PCP. He plans to call PCP on Friday, if pt discharges home over the weekend to have this done. states he will be back this PM and tomorrow morning around 9 AM. He is interested in observing therapy work with pt. Call placed to therapy and they were made aware. PLAN: ?Home w/family support. plans to contact PCP for HHC. Lobo JAMES RN CM
[2022-02-22] MEDS: Ensure Plus High Protein 120 ML LIQUID PO (21:22)
[2022-02-22] MEDS: 0.9% Saline Lock 10 ML Syringe IV (21:27)
[2022-02-22] MEDS: MELATONIN 3 MG TABLET PO (23:17)
[2022-02-23] VITALS (19 sets, daily range): BP systolic 136–168; BP diastolic 82–98; PULSE 82–106; RESP 20–30; TEMP 36.2–37.1; O2SAT 95–98
[2022-02-23] MEDS: 0.9% Normal Saline 1,000 ML 125 ML IV ×3 (01:33→22:24)
--- NOTE | 2022-02-23 07:35 | NURSING ---
Reviewed shift documentation charted by Mayra CACERES, orientee. This nurse agrees with documentation as entered.
--- NOTE | 2022-02-23 08:04 | PCM.PN.HOSP ---
Subjective Subjective Patient seen WBC count remains elevated at 20 K. Patient still remains quite lethargic but is able to answer questions with appropriate answers. Had an extensive discussion with patient and his 3 sons regarding her current condition and prognosis and expected discharge date. Objective Data Objective Data Vital Signs: Vital Signs Temp Pulse Resp BP Pulse Ox O2 Del Method 97.4 F L 82 24 H 162/90 H 97 Room Air 02/23/22 06:00 02/23/22 07:00 02/23/22 06:00 02/23/22 06:00 02/23/22 06:00 02/23/22 06:00 Oxygen Delivery Method Room Air Weight: 99 kg Body Mass Index (BMI) 40.1 Intake & Output: Intake and Output for Last 24 Hours 02/21/22 02/22/22 02/23/22 23:59 23:59 23:59 Intake Total 2440 / 2440 2947.08 / 2947.08 1520 / 1520 Output Total 150 / 150 1150 / 1150 1200 / 1200 Balance 2290 / 2290 1797.08 / 1797.08 320 / 320 Lab / Micro Data Result Diagrams: 02/23/22 08:18 02/23/22 08:18 Labs: Laboratory Results - last 24 hr 02/21/22 13:30: Diff Path Review Reviewed 02/22/22 06:00: Differential Comment , Diff Path Review Reviewed, Platelet Estimate ADEQUATE, RBC Morphology NORM C+C 02/22/22 06:00: Hemoglobin A1c 5.9 H Micro: Microbiology 02/21/22 13:30 Blood Culture (Wb) - Anticubital Left Blood Culture - Preliminary GNR lactose slide machine tender 02/21/22 13:50 Blood Culture (Wb) - Right Forearm Blood Culture - Preliminary GNR lactose slide machine tender 02/21/22 15:13 Urine, Midstream Urine Culture - Preliminary Presumptive E. coli Physical Exam Narrative GENERAL: Significantly flat affect HEENT: Atraumatic; normocephalic EYES; Anicteric, Normal Conjunctiva NECK; supple, normal thyroid, RESPIRATORY: Diminished to auscultation CARDIOVASCULAR: Regular S1 S2, GI: soft, normoactive bowel sounds, : No Renal angle tenderness; EXTREMITIES: No edema, no clubbing, MUSCULOSKELETAL: no muscle wasting NEURO: Awake; no lateralizing signs. SKIN: No Rash PSYCH; Flat affect Assessment & Plan Assessment/Plan (1) UTI (urinary tract infection): (2) DANNY (acute kidney injury): (3) Sepsis: PLAN: Plan Patient is a 61-year-old female admitted with generalized malaise and some confusion and assessment of acute cystitis made admitted for further management 1. Acute metabolic encephalopathy ? Secondary to acute cystitis admitted to a monitored bed for subsequent management ? 02/23/2022; patient still remains significantly encephalopathic ordered ammonia level as well as LFTs 2. Acute cystitis ? Culture sent, patient started on Rocephin ? 02/23/2022 cultures so far positive for presumptive E. coli 02/23/2022; cultures so far positive for presumptive E. coli 3. Sepsis ? Secondary to acute cystitis patient met criteria with evidence of an infection, WBC count greater than 12 K (23K on admission), tachycardic with heart rate greater than 132 and had evidence of endorgan damage with creatinine being greater than 2 on admission. Patient was managed per protocol. Patient progressed being monitored with serial lactic acid levels 4. Hyperglycemia ? Hemoglobin A1c was ordered to either rule in or rule out diabetes mellitus type 2 ? 02/23/2022 hemoglobin A1c was 5.9, diabetes mellitus type 2 ruled out 5. Essential hypertension ? Patient is on lisinopril this was held given her impaired kidney function, placed on hydralazine as needed to keep systolic blood pressure less than 160 6. Class III obesity with BMI of 41.2 ? Weight loss advised 7. Acute kidney injury ? Suspected to be secondary to ATN from patient's infection patient on IV fluid with serial monitoring of electrolytes ordered ? 02/23/2022 kidney function remains impaired creatinine down to 1.51 8. DVT prophylaxis ? SCDs and heparin Charges/Coding Visit Charges Inpatient E&M: 47939 Subs Hosp L2
[2022-02-23 08:29] LABS: Absolute Lymphocyte Count 2.73 X10^3/uL (0.83-4.51); Absolute Neutrophil Count 15.6 X10^3/uL (2.0-7.7); Basophil% 0.5 % (0-1); Hemoglobin 10.4 g/dL (12.0-15.0); Lymphocyte # 2.73 X10^3/ul (0.83-4.51); Lymphocyte % 13.1 % (19-41); Mean Corp Hgb Conc 32.5 g/dL (32-36); Mean Corpuscular Volume 92.2 fL (81-99); Mean Platelet Vol. 9.8 fl (6.2-12.0); Monocyte# 1.54 X10^3/uL; Monocyte% 7.4 % (0-10); NRBC Flagged by Analyzer 0 % (0-5); Neutrophil # 15.64 X10^3/uL (2.7-7.7); Neutrophil % 75.1 % (47-70); POSITIVE DIFFERENTIAL YES; POSITIVE MORPHOLOGY YES; Platelet Count 269 K/mm3 (150-450); RBC Distribution Width SD 54.8 fl (35.1-43.9); Red Blood Count 3.47 M/mm3 (4.2-5.4); White Blood Count 20.8 K/mm3 (4.4-11.0)
[2022-02-23 08:31] LABS: Differential Indicated SCAN CRITERIA MET
[2022-02-23 09:00] LABS: Anion Gap 7 (5-15); BUN 31 mg/dL (7-18); BUN/Creat Ratio 20.5 RATIO (10-20); Calcium,Total 8.8 mg/dL (8.5-10.1); Chloride 117 mmol/L (98-107); Creatinine, Serum 1.51 mg/dL (0.55-1.02); EST Glomerular Filtration Rate 37 mL/min (>60); Est Glom Filt Rate - Afr Amer 45 mL/min (>60); Estimated Creatinine Clearance 28.78 ml/min; Glucose 124 mg/dL (74-106); Magnesium 2.3 mg/dL (1.6-2.6); Sodium Level 145 mmol/L (136-145)
[2022-02-23] MEDS: Ensure Plus High Protein 120 ML LIQUID PO (10:01)
[2022-02-23] MEDS: Ceftriaxone 1 GM/50 ML BAG IV (10:03)
[2022-02-23] MEDS: 0.9% Saline Lock 10 ML Syringe IV (10:05)
[2022-02-23] MEDS: hydrALAZINE 20 MG/ML Vial 10 MG IV (10:06)
[2022-02-23] MEDS: Heparin Injection (Vial) 5,000 UNIT/ML VIAL 5000 UNIT SC ×2 (10:09→22:25)
[2022-02-23 11:26] LABS: Ammonia < 10.0 umol/L (11-32)
[2022-02-23 11:28] LABS: AST(SGOT) 66 U/L (15-37); Alanine Aminotransfer ALT/SGPT 66 U/L (13-56); Albumin, Serum 1.8 g/dL (3.2-5.0); Alkaline Phosphatase 109 U/L (45-117); Bilirubin, Direct 0.15 mg/dL (0.00-0.30); Protein, Total 6.8 g/dL (6.4-8.2)
--- NOTE | 2022-02-23 13:26 | CASEMGMT ---
Addendum entered by Rosa Reid 02/23/22 14:57: PT met with patient's son and the son's stated it was helpful. SW met with patient's and son's. Patient's completed the medicaid application. Son's said that they are going to see if patient qualifies for medicaid. Son said that he was going to call agency on Friday and SW reviewed list with him and he had the Home Health list. SW went to [employer] and printed out list for SNF in [facility]. Son's was advised that this fiction and nonfiction prose writer would not fax medicaid application at this time as offices are closed. Son's inquired about private pay and SW indicated that each SNF is different and has different pricing and may have different up front costs for placement. SW discussed with family that they may want to come up with a plan B regarding family members and providers who could assist with patient if she went home at discharge. Son's are inquiring how long it will take if patient goes to SNF and then can have her knee surgery and SW said that is up to the ortho MD. Son's inquiring about how long patient would be at SNF and SW explained that patient would need to be evaluated by SNF PT and they would work with her on her goals so it is undetermined how long patient would be at a SNF. Plan: To be determined Rosa SULLIVAN Original Note: SW Note SW spent an extensive amount of time with patient's and their children. Patient resides in house with and one son. is a company truck driver but sometimes he drives to [facility] so he is away at times during the day but can come home at night. Son and work 2 miles away when is not driving over [facility]. said that they feel like patient is improving. SW discussed the assist x2 and having 2 people there at all times to assist. Son's indicate that the family can help out but the logistics has not been secured yet. SW discussed social security disability, social security benefits and medicaid. thinks that as they are Nondenominational he has not paid into social security and patient worked in a restaurant years ago but he is unsure if patient paid into social security at that time. SW provided medicaid application. said that he thought about getting [employer]omin[employer] ladies to assist at home but he said I don't have that in place and I am not sure if I can get it. Patient has home health in the past which they private paid. SW encouraged family to complete medicaid application. SW spoke to patient's son again in lobby of PCU. They said that when reviewing the insurance that they may have some SNF benefits. Family would like to speak to PT. SW called PT and requested that they speak to sons. PT will come to speak to son's regarding their recommendations. Plan: To be determined Rosa FERNANDEZ
--- NOTE | 2022-02-23 15:09 | CM.ED ---
SHANNAN reviewed patient's medicaid application and noted that patient's biweekly income is 2400 with mortage/rent being $780. SHANNAN reviewed 2021 [place] medicaid financial guidelines and noted that patient may not meet medicaid eligibility. SHANNAN provided patient's son with 2021 [place] Medicaid financial guidelines and stated that patient may not be medicaid eligible. SHANNAN will update PCU SW. Plan: To be determined.
[2022-02-24] VITALS (14 sets, daily range): BP systolic 134–148; BP diastolic 76–85; PULSE 93–110; RESP 14–26; TEMP 36.2–36.7; O2SAT 94–98
[2022-02-24] MEDS: Albuterol 2.5 MG/3 ML VIAL.NEB. INHALATION ×2 (03:15→21:32)
--- NOTE | 2022-02-24 04:38 | EKG12_ITS ---
Test Reason : RHYTHM CHANGE Blood Pressure : / mmHG Vent. Rate : 089 BPM Atrial Rate : 000 BPM P-R Int : 000 ms QRS Dur : 064 ms QT Int : 328 ms P-R-T Axes : 000 015 -41 degrees QTc Int : 399 ms Atrial fibrillation with a competing junctional pacemaker Low voltage QRS Abnormal ECG When compared with ECG of 21-FEB-2022 13:03, Atrial fibrillation has replaced Sinus rhythm Vent. rate has decreased BY 59 BPM Confirmed by VAN PLEITEZ, TONY ([id number]), editorial manager ABDIEL ROMAN ([id number]) on 02/26/2022 9:27:28 AM Referred By: Confirmed By:TONY ARAUJO MD
--- NOTE | 2022-02-24 04:52 | ECHOD_ITS ---
Reason For Study: Afib/Flutter Procedure This was a 2D Doppler, Color Flow transthoracic echocardiogram. Patient refused to lay in proper position. Echo done with patient sitting upright. Exam performed portable in patient room. Left Ventricle Normal LV size. Left ventricular systolic function is normal. Stage 1 diastolic dysfunction. The estimated ejection fraction is 60 %. No regional wall motion abnormalities noted. Right Ventricle Normal RV size. Normal systolic function. Atria Normal left atrium. Normal right atrium. Mitral Valve There is mild mitral annular calcification. Tricuspid Valve Normal tricuspid valve. Aortic Valve Trisinus/trileaflet aortic valve. Mild focal aortic valve calcification. Pulmonic Valve Normal pulmonic valve. Great Vessels Normal aortic root. The pulmonary artery is normal size. Normal inferior vena cava. Pericardium/Pleural No pericardial effusion. MMode/2D Measurements & Calculations LVIDd: 4.1 cm IVSd: 1.1 cm Ao root diam: 2.8 cm LVIDs: 2.7 cm LVPWd: 1.0 cm LA dimension: 3.7 cm FS: 34.4 % LAV(MOD-bp): 30.1 ml LA A4 area: 13.7 cm2 LAV(MOD-bp) Indexed: 14.8 ml/m2 LAV(MOD-sp2): 27.7 ml LAV(MOD-sp4): 30.0 ml Time Measurements MV dec time: 0.17 sec Doppler Measurements & Calculations MV E max dev: 97.6 cm/sec Lat Peak E' Dev: 10.6 cm/sec Med Peak E' Dev: 10.2 cm/sec MV A max dev: 113.3 cm/sec E/E' lat: 9.2 E/E' med: 9.5 MV E/A: 0.86 MV V2 max: 136.7 cm/sec MV P1/2t max dev: 124.5 cm/sec Ao V2 max: 177.5 cm/sec MV max P.5 mmHg MV P1/2t: 38.1 msec Ao max P.6 mmHg MV V2 mean: 90.0 cm/sec MV dec slope: 957.8 cm/sec2 MV mean P.7 mmHg MVA(P1/2t): 5.8 cm2 MV V2 VTI: 25.8 cm LV V1 max: 131.2 cm/sec PA V2 max: 118.3 cm/sec LV V1 max P.9 mmHg PA V2 mean: 89.1 cm/sec ECHO/Echo Complete Interpretation Summary Normal LV size. Left ventricular systolic function is normal. Stage 1 diastolic dysfunction. The estimated ejection fraction is 60 %. Ordering Physician: Kt Obrien Referring Physician: Lluu Conteh Performed By: Nilesh Yu RCS
--- NOTE | 2022-02-24 04:55 | PCM.PN.BLA ---
Progress Note Patient with Afib with controlled rate confirmed on EKG. Mg and potassium level are normal. Check echo and TSH. Patient with a history of post-menopausal bleed.Will not start therapeutic Lovenox. Continue prophylactic heparin for DVT.
[2022-02-24 06:15] LABS: Hematocrit 33.5 % (37-47); Hemoglobin 10.8 g/dL (12.0-15.0); Mean Corp Hgb Conc 32.2 g/dL (32-36); Mean Corpuscular Hgb 29.8 pg (27.0-32.0); Mean Corpuscular Volume 92.3 fL (81-99); Mean Platelet Vol. 10.5 fl (6.2-12.0); POSITIVE COUNT YES; POSITIVE MORPHOLOGY YES; Platelet Count 311 K/mm3 (150-450); RBC Distribution Width CV 15.9 % (11.6-14.6); RBC Distribution Width SD 54.9 fl (35.1-43.9); Red Blood Count 3.63 M/mm3 (4.2-5.4); White Blood Count 25.3 K/mm3 (4.4-11.0)
[2022-02-24 06:24] LABS: Differential Indicated MANUAL DIFF
[2022-02-24 06:39] LABS: Anion Gap 8 (5-15); BUN 25 mg/dL (7-18); BUN/Creat Ratio 19.8 RATIO (10-20); Calcium,Total 8.5 mg/dL (8.5-10.1); Chloride 112 mmol/L (98-107); Creatinine, Serum 1.26 mg/dL (0.55-1.02); EST Glomerular Filtration Rate 45 mL/min (>60); Est Glom Filt Rate - Afr Amer 55 mL/min (>60); Estimated Creatinine Clearance 34.49 ml/min; Glucose 124 mg/dL (74-106); Potassium 3.8 mmol/L (3.5-5.1); Sodium Level 140 mmol/L (136-145)
[2022-02-24] MEDS: 0.9% Normal Saline 1,000 ML 125 ML IV ×3 (06:46→21:30)
[2022-02-24 06:54] LABS: Thyroid Stim Hormone (TSH) 3.71 uIU/mL (0.358-3.74)
[2022-02-24 07:08] LABS: Lymphocyte 23 % (19-41); Metamyelocyte 4 % (0-1); Monocyte 2 % (0-10); Myelocyte 1 % (0-0); Neutrophil-Band 5 % (0-5); Neutrophil-Segmented 64 % (47-70); Other WBC Type 1 %; Total Cells Counted 100 (MANUAL DIFF)
[2022-02-24 07:09] LABS: Absolute Neutrophil Count 18.7 X10^3/uL (2.0-7.7); Neutrophil # 18.74 X10^3/uL (2.7-7.7)
[2022-02-24 07:10] LABS: Absolute Lymphocyte Count 5.83 X10^3/uL (0.83-4.51); Lymphocyte # 5.83 X10^3/ul (0.83-4.51); Platelet Estimate ADEQUATE (ADEQ); Red Cell Morphology NORM C+C NORMAL (NORM C&C)
--- NOTE | 2022-02-24 07:41 | PN.HOSP_ITS ---
Subjective Subjective Patient seen much more awake and interactive.. Case was discussed with patient and family plan is for patient to be discharged to a snf facility for rehab prior to going back home Objective Data Objective Data Vital Signs: Vital Signs Temp Pulse Resp BP Pulse Ox O2 Del Method O2 Flow Rate 97.1 F L 99 26 H 136/83 H 97 Room Air 96 02/24/22 06:00 02/24/22 06:00 02/24/22 06:00 02/24/22 06:00 02/24/22 06:00 02/24/22 06:00 02/24/22 06:00 Oxygen Flow Rate (L/min) 96 Oxygen Delivery Method Room Air Weight: 99.6 kg Body Mass Index (BMI) 40.1 Intake & Output: Intake and Output for Last 24 Hours 02/22/22 02/23/22 02/24/22 23:59 23:59 23:59 Intake Total 2947.08 / 2947.08 4050.00 / 4050.00 1000 / 1000 Output Total 1150 / 1150 1950 / 2250 1100 / 1100 Balance 1797.08 / 1797.08 2100.00 / 1800.00 -100 / -100 Lab / Micro Data Result Diagrams: 02/24/22 05:20 02/24/22 05:20 Labs: Laboratory Results - last 24 hr 02/23/22 08:18: WBC 20.8 H, RBC 3.47 L, Hgb 10.4 L, Hct 32.0 L, MCV 92.2, MCH 30.0, MCHC 32.5, RDW Std Deviation 54.8 H, RDW Coeff of Gauri 16.0 H, Plt Count 269, MPV 9.8, Immature Gran % (Auto) 3.900 H, Neut % (Auto) 75.1 H, Lymph % (Auto) 13.1 L, Rush % (Auto) 7.4, Eos % (Auto) 0.0, Baso % (Auto) 0.5, Absolute Neuts (auto) 15.6 H, Absolute Lymphs (auto) 2.73, Nucleated RBC % 0, Diff Path Review September02/23/22 08:18: Sodium 145, Potassium 4.0, Chloride 117 H, Carbon Dioxide 21.0, Anion Gap 7, BUN 31 H, Creatinine 1.51 H, Estim Creat Clear Calc 28.78, Est GFR (MDRD) Af Amer 45 L, Est GFR (MDRD) Non-Af 37 L, BUN/Creatinine Ratio 20.5 H, Glucose 124 H, Calcium 8.8, Magnesium 2.3 02/23/22 10:42: Total Bilirubin 0.30, Direct Bilirubin 0.15, AST 66 H, ALT 66 H, Alkaline Phosphatase 109, Total Protein 6.8, Albumin 1.8 L, Globulin 5.0 H 02/23/22 10:42: Ammonia < 10.0 L 02/24/22 05:20: WBC 25.3 H, RBC 3.63 L, Hgb 10.8 L, Hct 33.5 L, MCV 92.3, MCH 29.8, MCHC 32.2, RDW Std Deviation 54.9 H, RDW Coeff of Gauri 15.9 H, Plt Count 311, MPV 10.5, Neut % (Auto) Not Reportable, Absolute Neuts (auto) 18.7 H, Absolute Lymphs (auto) 5.83 H, Total Counted 100, Neutrophils % (Manual) 64, Band Neutrophils % 5, Lymphocytes % (Manual) 23, Monocytes % (Manual) 2, Metamyelocytes % 4 H, Myelocytes % 1 H, Other Cells % 1, Diff Path Review September, Platelet Estimate ADEQUATE, RBC Morphology NORM C+C 02/24/22 05:20: Sodium 140, Potassium 3.8, Chloride 112 H, Carbon Dioxide 20.0 L , Anion Gap 8, BUN 25 H, Creatinine 1.26 H, Estim Creat Clear Calc 34.49, Est GFR (MDRD) Af Amer 55 L, Est GFR (MDRD) Non-Af 45 L, BUN/Creatinine Ratio 19.8, Glucose 124 H, Calcium 8.5 02/24/22 05:20: TSH 3.71 Micro: Microbiology 02/21/22 13:50 Blood Culture (Wb) - Right Forearm Blood Culture - Final Escherichia coli 02/21/22 15:13 Urine, Midstream Urine Culture - Final Presumptive E. coli 02/21/22 13:30 Blood Culture (Wb) - Anticubital Left Blood Culture - Preliminary GNR lactose production scheduler Physical Exam Narrative GENERAL: Cooperative and more interactive HEENT: Atraumatic; normocephalic EYES; Anicteric, Normal Conjunctiva NECK; supple, normal thyroid, RESPIRATORY: Diminished to auscultation CARDIOVASCULAR: Regular S1 S2, GI: soft, normoactive bowel sounds, : No Renal angle tenderness; EXTREMITIES: No edema, no clubbing, MUSCULOSKELETAL: no muscle wasting NEURO: Awake; no lateralizing signs. SKIN: No Rash PSYCH; Flat affect Assessment & Plan Assessment/Plan (1) UTI (urinary tract infection): (2) DANNY (acute kidney injury): (3) Sepsis: PLAN: Plan Patient is a 61-year-old female admitted with generalized malaise and some confusion and assessment of acute cystitis made admitted for further management 1. Acute metabolic encephalopathy ? Secondary to acute cystitis admitted to a monitored bed for subsequent management ? 02/23/2022; patient still remains significantly encephalopathic ordered ammonia level as well as LFTs ? 02/24/2022 ammonia level and LFTs were relatively unremarkable. Patient level of sensorium however markedly improved. 2. Acute cystitis ? Culture sent, patient started on Rocephin ? 02/23/2022 cultures so far positive for presumptive E. coli 02/23/2022; cultures so far positive for presumptive E. coli ? 02/24/2022; patient on appropriate antibiotics 3. Sepsis ? Secondary to acute cystitis patient met criteria with evidence of an infection, WBC count greater than 12 K (23K on admission), tachycardic with heart rate greater than 132 and had evidence of endorgan damage with creatinine being greater than 2 on admission. Patient was managed per protocol. Patient progressed being monitored with serial lactic acid levels 4. Hyperglycemia ? Hemoglobin A1c was ordered to either rule in or rule out diabetes mellitus type 2 ? 02/23/2022 hemoglobin A1c was 5.9, diabetes mellitus type 2 ruled out 5. Essential hypertension ? Patient is on lisinopril this was held given her impaired kidney function, placed on hydralazine as needed to keep systolic blood pressure less than 160 6. Class III obesity with BMI of 41.2 ? Weight loss advised 7. Acute kidney injury ? Suspected to be secondary to ATN from patient's infection patient on IV fluid with serial monitoring of electrolytes ordered ? 02/23/2022 kidney function remains impaired creatinine down to 1.51 ? 02/24/2022 creatinine down to 1.26 8. DVT prophylaxis ? SCDs and heparin 9. Physical deconditioning - Requested for PT OT eval and social science instructor to assist with discharge planning Charges/Coding Visit Charges Inpatient E&M: 70019 Subs Hosp L2
[2022-02-24] MEDS: Heparin Injection (Vial) 5,000 UNIT/ML VIAL 5000 UNIT SC ×2 (08:41→20:37)
[2022-02-24] MEDS: Ceftriaxone 1 GM/50 ML BAG IV (08:44)
[2022-02-24] MEDS: Ensure Plus High Protein 120 ML LIQUID PO (20:37)
[2022-02-25] VITALS (15 sets, daily range): BP systolic 138–162; BP diastolic 74–89; PULSE 92–104; RESP 16–22; TEMP 36.3–36.9; O2SAT 95–98
[2022-02-25] MEDS: 0.9% Normal Saline 1,000 ML 125 ML IV (04:59)
[2022-02-25] MEDS: Albuterol 2.5 MG/3 ML VIAL.NEB. INHALATION (05:11)
[2022-02-25 05:14] LABS: Hematocrit 33.1 % (37-47); Hemoglobin 10.8 g/dL (12.0-15.0); Mean Corp Hgb Conc 32.6 g/dL (32-36); Mean Corpuscular Hgb 30.9 pg (27.0-32.0); Mean Corpuscular Volume 94.6 fL (81-99); POSITIVE COUNT YES; POSITIVE MORPHOLOGY YES; Platelet Count 321 K/mm3 (150-450); RBC Distribution Width SD 55.5 fl (35.1-43.9); White Blood Count 21.2 K/mm3 (4.4-11.0)
[2022-02-25 05:16] LABS: Differential Indicated MANUAL DIFF
[2022-02-25 06:14] LABS: Anion Gap 8 (5-15); BUN 22 mg/dL (7-18); Calcium,Total 8.6 mg/dL (8.5-10.1); Chloride 115 mmol/L (98-107); Creatinine, Serum 1.22 mg/dL (0.55-1.02); EST Glomerular Filtration Rate 47 mL/min (>60); Est Glom Filt Rate - Afr Amer 57 mL/min (>60); Estimated Creatinine Clearance 35.62 ml/min; Glucose 124 mg/dL (74-106); Potassium 3.7 mmol/L (3.5-5.1); Sodium Level 143 mmol/L (136-145)
[2022-02-25 06:49] LABS: Anisocytosis 1+
[2022-02-25 06:53] LABS: Absolute Lymphocyte Count 3.39 X10^3/uL (0.83-4.51); Absolute Neutrophil Count 14.8 X10^3/uL (2.0-7.7)
[2022-02-25 06:54] LABS: Atypical Lymphocyte 1+ %; Lymphocyte 16 % (19-41); Monocyte 4 % (0-10); Myelocyte 9 % (0-0); Neutrophil-Band 5 % (0-5); Neutrophil-Segmented 65 % (47-70); Promyelocyte 1 % (0-0); Total Cells Counted 100 (MANUAL DIFF)
[2022-02-25] MEDS: Heparin Injection (Vial) 5,000 UNIT/ML VIAL 5000 UNIT SC ×2 (08:52→22:12)
[2022-02-25] MEDS: hydrALAZINE 20 MG/ML Vial 10 MG IV (08:57)
[2022-02-25] MEDS: 0.9% Saline Lock 10 ML Syringe IV (08:58)
[2022-02-25] MEDS: Ceftriaxone 1 GM/50 ML BAG IV (09:02)
--- NOTE | 2022-02-25 11:23 | CASEMGMT ---
SW met with patient's son and . Introduced self and role at [facility]. Both feel patient needs to go somewhere for rehab. They were provided with a SNF list on Friday. Family's first choice is [facility], second [facility], and third [facility]. SW let them know SW will work on referrals and let them know what SW finds out. SW asked Lois d/c planning specialist to please send referrals. Await responses. Emily SULLIVAN
--- NOTE | 2022-02-25 11:33 | CASEMGMT ---
Discharge Regional Intermodal Truck Driver Lois falcon medical technician assistant sent referral on patient to [facility] via [facility]. Will follow up Plan: Bob Benites, Waiting Acceptance Lois Choe Discharge Regional Intermodal Truck Driver
--- NOTE | 2022-02-25 13:07 | CASEMGMT ---
Discharge Spring Former Machine Lois falcon operating room assistant sent referral to [facility]. Lois Choe Discharge Spring Former Machine
--- NOTE | 2022-02-25 13:42 | CASEMGMT ---
Discharge Esthetician Makeup Artist Lois falcon rehab assistant called all three of patient choice SNF and have left voicemails. Have not been able to reach anyone at any three faculties. Plan: Waiting on a Acceptance SNF Lois Pritchard Discharge Esthetician Makeup Artist
[2022-02-25 13:55] LABS: Pathologist Review Reviewed
[2022-02-25 13:56] LABS: Pathologist Review Reviewed
[2022-02-25 14:00] LABS: Pathologist Review Reviewed
--- NOTE | 2022-02-25 14:22 | CASEMGMT ---
Addendum entered by Lois Choe 02/25/22 14:58: Discharge Can Sealer [facility] is not in network with insurance. Lois Choe Discharge Can Sealer Original Note: Discharge Can Sealer Lois d/dima wet process miller head assistant called [facility]. [facility] has no female beds at the moment. Lois Choe Discharge Can Sealer
--- NOTE | 2022-02-25 14:59 | CASEMGMT ---
Discharge Tree Wrapper Lois d/c real estate administrative assistant went to patient room. at bedside. Lois explained the first couple choices were either out of network or had no beds. Lois got more options from . was also okay with nursing homes in [place]. Lois sent referral to [facility] as well as [facility] and [facility] Plan: Acceptance at SNF that takes patient insurance Lois Choe Discharge Tree Wrapper
--- NOTE | 2022-02-25 15:54 | CASEMGMT ---
SHANNAN called [employer], patient's insurance, to see if they cover prison stay. SHANNAN was told they do not. SHANNAN let patient's know this information. He completed a Medicaid application. However, he makes $4800 a month before taxes. They are likely not going to qualify. SHANNAN explained to patient's that if patient goes to a prison on pending Medicaid and they do not get approved they will be responsible for the prison bill. He wanted to proceed with submitting Medicaid application. SHANNAN will contact [facility] tomorrow to obtain their fax number as they are closed today for the holiday. Lois d/c social work assistant did send out referrals to patient's 's choices. Emily SULLIVAN
--- NOTE | 2022-02-25 17:25 | PCM.PN.HOSP ---
Subjective Subjective DOS 02/25/22 CC: Feeling tired Ms. Gil is a 61y/o female who presented 02/21 for increased confusion, fatigue, and malaise for several days in addition to 3-4 days of dysuria. Family present at bedside. Pt reports feeling tired but starting to feel better. No chest pain at this time, still some cough and confusion. Appetite fair. Denies chest pain or overt SOB at this time. Objective Data Objective Data Vital Signs: Vital Signs Temp Pulse Resp BP Pulse Ox O2 Del Method O2 Flow Rate 98.0 F 101 H 16 143/74 H 96 Room Air 96 02/25/22 15:15 02/25/22 15:15 02/25/22 15:15 02/25/22 15:15 02/25/22 15:15 02/25/22 15:15 02/25/22 03:11 Oxygen Flow Rate (L/min) 96 Oxygen Delivery Method Room Air Weight: 101.9 kg Body Mass Index (BMI) 40.1 Intake & Output: Intake and Output for Last 24 Hours 02/23/22 02/24/22 02/25/22 23:59 23:59 23:59 Intake Total 4050.00 / 4050.00 3433.33 / 3633.33 1672.92 / 1672.92 Output Total 1950 / 2250 2150 / 2450 1200 / 1200 Balance 2100.00 / 1800.00 1283.33 / 1183.33 472.92 / 472.92 Lab / Micro Data Result Diagrams: 02/25/22 05:08 02/25/22 05:08 Labs: Laboratory Results - last 24 hr 02/23/22 08:18: Diff Path Review Reviewed 02/24/22 05:20: Diff Path Review Reviewed 02/25/22 05:08: WBC 21.2 H, RBC 3.50 L, Hgb 10.8 L, Hct 33.1 L, MCV 94.6, MCH 30.9, MCHC 32.6, RDW Std Deviation 55.5 H, RDW Coeff of Gauri 16.0 H, Plt Count 321, MPV 10.0, Neut % (Auto) Not Reportable, Absolute Neuts (auto) 14.8 H, Absolute Lymphs (auto) 3.39, Total Counted 100, Neutrophils % (Manual) 65, Band Neutrophils % 5, Lymphocytes % (Manual) 16 L, Monocytes % (Manual) 4, Myelocytes % 9 H, Promyelocytes % 1 H, Diff Path Review Reviewed, Atypical Lymphocytes 1+, Anisocytosis 1+ 02/25/22 05:08: Sodium 143, Potassium 3.7, Chloride 115 H, Carbon Dioxide 20.0 L, Anion Gap 8, BUN 22 H, Creatinine 1.22 H, Estim Creat Clear Calc 35.62, Est GFR (MDRD) Af Amer 57 L, Est GFR (MDRD) Non-Af 47 L, BUN/Creatinine Ratio 18.0, Glucose 124 H, Calcium 8.6 Micro: Microbiology 02/21/22 13:30 Blood Culture (Wb) - Anticubital Left Blood Culture - Final GNR lactose education courses sales representative 02/21/22 13:50 Blood Culture (Wb) - Right Forearm Blood Culture - Final Escherichia coli 02/21/22 15:13 Urine, Midstream Urine Culture - Final Presumptive E. coli Radiography Diagnostic Testing: Radiology Impression Echocardiogram 02/24/22 04:52 Interpretation Summary Normal LV size. Left ventricular systolic function is normal. Stage 1 diastolic dysfunction. The estimated ejection fraction is 60 %. Ordering Physician: Kt Obrien Referring Physician: Lulu Conteh Performed By: Nilesh Yu RCS Physical Exam Const alert and no apparent distress Constitutional Narrative: Some difficulty answering orientation questions but later was more alter and appropriate HEENT normocephalic and head/scalp atraumatic Eyes Eyes Narrative: EOM grossly intact, anicteric Neck supple Resp normal respiratory effort and clear to auscultation bilaterally Cardio regular rate and regular rhythm GI soft to palpation, non-tender and non-distended GI Narrative: no suprapubic tenderness Extremity Extremity Narrative: No edema appreciated Neuro moves all extremities Neuro Narrative: No overt focal deficits appreciated Psych Psych Narrative: Cooperative Assessment & Plan Assessment/Plan (1) UTI (urinary tract infection): (2) DANNY (acute kidney injury): (3) Sepsis: PLAN: Plan 1. Acute metabolic encephalopathy ? Secondary to acute cystitis admitted to a monitored bed for subsequent management ? 02/23/2022; patient still remains significantly encephalopathic ordered ammonia level as well as LFTs ? 02/24/2022 ammonia level and LFTs were relatively unremarkable. Patient level of sensorium however markedly improved. 02/25: continues to improve, more appropriate as the day progressed, if pt remains stable likely to skilled facility tomorrow #Afib Seen per night team Echo this admission with EF 60% and gd 1 diastolic dysfunction With dysfunctional uterine bleeding was not started on therapeutic AC, will need to discuss further monitor H&H 2. Acute cystitis ? Culture sent, patient started on Rocephin ? 02/23/2022 cultures so far positive for presumptive E. coli 02/23/2022; cultures so far positive for presumptive E. coli ? 02/24/2022; patient on appropriate antibiotics 02/25: No suprabupic tenderness, pt on appropriate abx and improving, will transition to po tomorrow for d/c 3. Sepsis- resolved ? Secondary to acute cystitis patient met criteria with evidence of an infection, WBC count greater than 12 K (23K on admission), tachycardic with heart rate greater than 132 and had evidence of endorgan damage with creatinine being greater than 2 on admission. Patient was managed per protocol. Patient progressed being monitored with serial lactic acid levels -2/2 acute cystitis, blood cultures + ecoli as was urine cx, on rocephin, improving 4. Hyperglycemia ? Hemoglobin A1c was ordered to either rule in or rule out diabetes mellitus type 2 ? 02/23/2022 hemoglobin A1c was 5.9, diabetes mellitus type 2 ruled out 5. Essential hypertension ? Patient is on lisinopril this was held given her impaired kidney function, placed on hydralazine as needed to keep systolic blood pressure less than 160 6. Class III obesity with BMI of 41.2 ? Weight loss advised 7. Acute kidney injury ? Suspected to be secondary to ATN from patient's infection patient on IV fluid with serial monitoring of electrolytes ordered ? 02/23/2022 kidney function remains impaired creatinine down to 1.51 ? 02/24/2022 creatinine down to 1.26 02/25: continues to improve, supportive care 8. DVT prophylaxis ? SCDs and heparin 9. Physical deconditioning - Requested for PT OT eval and social organization professor to assist with discharge planning Plan for SNF Charges/Coding Visit Charges Inpatient E&M: 93134 Subs Hosp L2
[2022-02-25] MEDS: Ensure Plus High Protein 120 ML LIQUID PO (22:13)
[2022-02-26] VITALS (13 sets, daily range): BP systolic 140–159; BP diastolic 79–88; PULSE 82–110; RESP 16–18; TEMP 36.6–37; O2SAT 94–98
[2022-02-26 06:38] LABS: Hematocrit 32.7 % (37-47); Hemoglobin 10.6 g/dL (12.0-15.0); Mean Corp Hgb Conc 32.4 g/dL (32-36); Mean Corpuscular Hgb 29.9 pg (27.0-32.0); Mean Corpuscular Volume 92.1 fL (81-99); Mean Platelet Vol. 9.9 fl (6.2-12.0); POSITIVE COUNT YES; POSITIVE MORPHOLOGY YES; Platelet Count 372 K/mm3 (150-450); RBC Distribution Width CV 15.8 % (11.6-14.6); RBC Distribution Width SD 53.1 fl (35.1-43.9); Red Blood Count 3.55 M/mm3 (4.2-5.4); White Blood Count 19.3 K/mm3 (4.4-11.0)
[2022-02-26 07:00] LABS: Differential Indicated MANUAL DIFF
[2022-02-26 07:02] LABS: ALB/GLOB Ratio 0.4 RATIO (0.9-2.4); AST(SGOT) 18 U/L (15-37); Alanine Aminotransfer ALT/SGPT 38 U/L (13-56); Albumin, Serum 1.9 g/dL (3.2-5.0); Alkaline Phosphatase 86 U/L (45-117); Anion Gap 6 (5-15); BUN 19 mg/dL (7-18); BUN/Creat Ratio 17.3 RATIO (10-20); Chloride 114 mmol/L (98-107); EST Glomerular Filtration Rate 53 mL/min (>60); Est Glom Filt Rate - Afr Amer 64 mL/min (>60); Globulin 4.8 g/dL (2.2-4.2); Glucose 115 mg/dL (74-106); Potassium 3.5 mmol/L (3.5-5.1); Protein, Total 6.7 g/dL (6.4-8.2); Sodium Level 143 mmol/L (136-145)
[2022-02-26 07:04] LABS: Neutrophil-Band 4 % (0-5); Neutrophil-Segmented 78 % (47-70); Total Cells Counted 100 (MANUAL DIFF)
[2022-02-26 07:05] LABS: Lymphocyte 11 % (19-41); Metamyelocyte 1 % (0-1); Monocyte 2 % (0-10); Myelocyte 4 % (0-0); Platelet Estimate ADEQUATE (ADEQ); Red Cell Morphology NORM C+C NORMAL (NORM C&C)
[2022-02-26 07:06] LABS: Absolute Lymphocyte Count 2.13 X10^3/uL (0.83-4.51); Absolute Neutrophil Count 15.9 X10^3/uL (2.0-7.7); Lymphocyte # 2.13 X10^3/ul (0.83-4.51); Neutrophil # 15.86 X10^3/uL (2.7-7.7)
--- NOTE | 2022-02-26 08:04 | PN.HOSP_ITS ---
Subjective Subjective DOS 02/26/22 CC: Want to go home Pt reports doing well this morning. Remains confused but still alert. No bleeding reported, eating fair. Remains weak. No CP or SOB. no other complaint sthis AM Objective Data Objective Data Vital Signs: Vital Signs Temp Pulse Resp BP Pulse Ox O2 Del Method O2 Flow Rate 98.6 F 95 18 149/86 H 98 Room Air 96 02/26/22 04:00 02/26/22 04:00 02/26/22 04:00 02/26/22 04:00 02/26/22 04:00 02/26/22 04:00 02/25/22 03:11 Oxygen Flow Rate (L/min) 96 Oxygen Delivery Method Room Air Weight: 101 kg Body Mass Index (BMI) 40.1 Intake & Output: Intake and Output for Last 24 Hours 02/24/22 02/25/22 02/26/22 23:59 23:59 23:59 Intake Total 3433.33 / 3633.33 2072.92 / 2072.92 240 / 240 Output Total 2150 / 2450 1800 / 1800 800 / 800 Balance 1283.33 / 1183.33 272.92 / 272.92 -560 / -560 Lab / Micro Data Result Diagrams: 02/26/22 05:50 02/26/22 05:50 Labs: Laboratory Results - last 24 hr 02/23/22 08:18: Diff Path Review Reviewed 02/24/22 05:20: Diff Path Review Reviewed 02/25/22 05:08: Diff Path Review Reviewed 02/26/22 05:50: WBC 19.3 H, RBC 3.55 L, Hgb 10.6 L, Hct 32.7 L, MCV 92.1, MCH 29.9, MCHC 32.4, RDW Std Deviation 53.1 H, RDW Coeff of Gauri 15.8 H, Plt Count 372, MPV 9.9, Neut % (Auto) Not Reportable, Absolute Neuts (auto) 15.9 H, Absolute Lymphs (auto) 2.13, Total Counted 100, Neutrophils % (Manual) 78 H, Band Neutrophils % 4, Lymphocytes % (Manual) 11 L, Monocytes % (Manual) 2, Metamyelocytes % 1, Myelocytes % 4 H, Diff Path Review May foll, Platelet Estimate ADEQUATE, RBC Morphology NORM C+C 02/26/22 05:50: Sodium 143, Potassium 3.5, Chloride 114 H, Carbon Dioxide 23.0, Anion Gap 6, BUN 19 H, Creatinine 1.10 H, Estim Creat Clear Calc 39.50, Est GFR (MDRD) Af Amer 64, Est GFR (MDRD) Non-Af 53 L, BUN/Creatinine Ratio 17.3, Glucose 115 H, Calcium 9.0, Total Bilirubin 0.40, AST 18, ALT 38, Alkaline Phosphatase 86, Total Protein 6.7, Albumin 1.9 L, Globulin 4.8 H, Albumin/Globulin Ratio 0.4 L Micro: Microbiology 02/21/22 13:30 Blood Culture (Wb) - Anticubital Left Blood Culture - Final GNR lactose nail maker 02/21/22 13:50 Blood Culture (Wb) - Right Forearm Blood Culture - Final Escherichia coli 02/21/22 15:13 Urine, Midstream Urine Culture - Final Presumptive E. coli Radiography Diagnostic Testing: Radiology Impression Echocardiogram 02/24/22 04:52 Interpretation Summary Normal LV size. Left ventricular systolic function is normal. Stage 1 diastolic dysfunction. The estimated ejection fraction is 60 %. Ordering Physician: Kt Obrien Referring Physician: Lulu Conteh Performed By: Nilesh Yu RCS Physical Exam Const alert and no apparent distress Constitutional Narrative: Some difficulty answering orientation questions but later was more alter and appropriate, knew self but not year this AM, was aware of location HEENT normocephalic and head/scalp atraumatic Eyes Eyes Narrative: EOM grossly intact, anicteric Neck supple Resp normal respiratory effort and clear to auscultation bilaterally Cardio regular rate and regular rhythm GI soft to palpation, non-tender and non-distended GI Narrative: no suprapubic tenderness Extremity Extremity Narrative: No edema appreciated Neuro moves all extremities Neuro Narrative: No overt focal deficits appreciated Psych Psych Narrative: Cooperative Assessment & Plan Assessment/Plan (1) UTI (urinary tract infection): (2) DANNY (acute kidney injury): (3) Sepsis: PLAN: Plan 1. Acute metabolic encephalopathy ? Secondary to acute cystitis admitted to a monitored bed for subsequent management ? 02/23/2022; patient still remains significantly encephalopathic ordered ammonia level as well as LFTs ? 02/24/2022 ammonia level and LFTs were relatively unremarkable. Patient level of sensorium however markedly improved. 02/25: continues to improve, more appropriate as the day progressed, if pt carmenza ins stable likely to skilled facility tomorrow 02/26: Improved, likely d/c to SNF today #Afib Seen per night team Echo this admission with EF 60% and gd 1 diastolic dysfunction With dysfunctional uterine bleeding was not started on therapeutic AC, hgb 10.6 this AM monitor H&H 2. Acute cystitis ? Culture sent, patient started on Rocephin ? 02/23/2022 cultures so far positive for presumptive E. coli 02/23/2022; cultures so far positive for presumptive E. coli ? 02/24/2022; patient on appropriate antibiotics 02/25: No suprabupic tenderness, pt on appropriate abx and improving, will transition to po tomorrow for d/c 3. Sepsis- resolved ? Secondary to acute cystitis patient met criteria with evidence of an infection, WBC count greater than 12 K (23K on admission), tachycardic with heart rate greater than 132 and had evidence of endorgan damage with creatinine being greater than 2 on admission. Patient was managed per protocol. Patient progressed being monitored with serial lactic acid levels -2/2 acute cystitis, blood cultures + ecoli as was urine cx, on rocephin, improving 4. Hyperglycemia ? Hemoglobin A1c was ordered to either rule in or rule out diabetes mellitus type 2 ? 02/23/2022 hemoglobin A1c was 5.9, diabetes mellitus type 2 ruled out 5. Essential hypertension ? Patient is on lisinopril this was held given her impaired kidney function, placed on hydralazine as needed to keep systolic blood pressure less than 160 6. Class III obesity with BMI of 41.2 ? Weight loss advised 7. Acute kidney injury ? Suspected to be secondary to ATN from patient's infection patient on IV fluid with serial monitoring of electrolytes ordered ? 02/23/2022 kidney function remains impaired creatinine down to 1.51 ? 02/24/2022 creatinine down to 1.26 02/25: continues to improve, supportive care 02/26: Improvement continues, can f/u BMP at SNF 8. DVT prophylaxis ? SCDs and heparin 9. Physical deconditioning - Requested for PT OT eval and social service technician to assist with discharge planning Plan for SNF today Charges/Coding Visit Charges Inpatient E&M: 21787 Subs Hosp L2
--- NOTE | 2022-02-26 09:00 | CASEMGMT ---
Addendum entered by Lois Choe 02/26/22 13:37: [place] $240/ a day Private Room. Base pay for therapy $110-115. Money needed to be paid up front. Original Note: Discharge It Audit Manager Lois d/dima contact center assistant called around to get private pay prices [facility]: Private Room $392/Day For 3 weeks 8,232.00 would need to be paid up front. For a Semi private room it would be $20.00 cheaper a day. [facility] $213/Day One month 6,390.00 to be paid up front. Facility offers out patient therapy. Patient insurance might cover out patient therapy therefore patient would only need to pay for room and board. [facility]: [facility] has not been able to talk to anyone in return Lois Choe Discharge It Audit Manager
[2022-02-26] MEDS: Ensure Plus High Protein 120 ML LIQUID PO ×4 (09:18→21:50)
[2022-02-26] MEDS: Heparin Injection (Vial) 5,000 UNIT/ML VIAL 5000 UNIT SC ×2 (09:18→21:51)
[2022-02-26] MEDS: Ceftriaxone 1 GM/50 ML BAG IV (09:18)
--- NOTE | 2022-02-26 09:35 | CASEMGMT ---
SHANNAN spoke with patient and her youngest son. SW let them know that [facility] [employer] has denied as they do not take patient's insurance. [facility] has no female beds. SW let them know that [facility] will take patient, but patient would be private pay. patient's son said that they talked and it would be possible to private pay for halfway care, but they need to know how much that would cost. SW let them know SW an check into costs and let them know. SHANNAN asked Lois kim/dima planning director to please check on this. Emily Peterson PRINCIPAL EMBEDDED SOFTWARE ENGINEER LAURIE
--- NOTE | 2022-02-26 10:00 | CASEMGMT ---
SHANNAN called [facility]. SHANNAN spoke with Cherelle. SHANNAN asked if SHANNAN sends an application for a patient that is looking to go to a detention what fax should SW send application. SHANNAN also asked if SHANNAN would be able to obtain a pending case number. Cherelle said that if SHANNAN called towards the end of the week she could give SW a pending case number. [phone] and fax: [phone]. Emily SULLIVAN
--- NOTE | 2022-02-26 12:00 | CASEMGMT ---
Discharge Health Education Aide Lois d/c printing bindery assistant called [facility] again and was told Muriel is not in which is who I have been leaving voicemail with. Lois left a voicemail for Ruth Choe Discharge Health Education Aide
--- NOTE | 2022-02-26 12:55 | CASEMGMT ---
SHANNAN received a call from patient's son Mehul. Mehul spoke with Twila at [facility]. Mehul said Twila was requesting SW fax the referral. SHANNAN notified Lois d/c funeral planning counselor. Mehul said that they are willing to private pay for penitentiary within reason. His hope is that the penitentiary would try and work with insurance to see if they could get reimbursed. SHANNAN let Mehul know that SHANNAN will start working on this. Emily Peterson SMALL ELECTRIC ENGINE TECHNICIANTrae SULLIVAN
--- NOTE | 2022-02-26 13:05 | CASEMGMT ---
Discharge Director Payer Lois d/dima civil engineering assistant called [facility]. Left on hold multiple times. [facility] states everyone is either out of building or on the other line. Lois will keep calling. Lois Choe Discharge Director Payer
[2022-02-26 13:21] LABS: Pathologist Review Reviewed
--- NOTE | 2022-02-26 13:38 | CASEMGMT ---
Discharge Security Officer All three snf private pay numbers have been obtained. Family is thinking [facility]. Lois called admissions at [facility] to check to see if bed is still available. Bed is available. [facility] admissions is calling patient insurance to check patient therapy benefits. Will follow up Lois Choe Discharge Security Officer
--- NOTE | 2022-02-26 15:35 | CHAPLAIN ---
Type of Pastoral Visit _x__ Initial Visit ___ Follow-up Visit ___ On-call Visit ___ General Patient Visit ___ Spiritual Assessment ___ Family Conference ___ Bereavement ___ Rapid Response ___ Code Blue ___ Other (describe below) Pastoral Care Referral From _x__ Patient ___ Family ___ Nurse ___ Physician ___ Ore Sampler ___ Automotive Parts Counter Associate ___ Other (describe below) Sacrament/Intervention _x__ Active listening ___ Anointing ___ Gnosticist ___ Bereavement ___ Communion _x__ Lizeth exploration ___ _x__ Life review _x__ Prayer ___ Reconciliation ___ Sacrament of Sick _x__ Supportive presence ___ Wedding ___ Other (describe below) Pastoral Comments patient and one son were in the room; pt states that she needs prayer and scriptures to be read to her; son gives some health information and that they are working on discharge and placement possibilities; pt gives much life review particularly about her extended and immediate family members; pt is member of a [employer] about an hour's drive from here; pt welcomes support from the spiritual perspective; son also engages in the conversation and welcomes support for family
--- NOTE | 2022-02-26 15:57 | CASEMGMT ---
Discharge Coal Getter Lois called [facility]. [facility] is going to deny patient due to [facility] already have some max assist patients. Son Mehul wanted to call [facility] to talk with them before making a choice. Plan: Lois Choe Discharge Coal Getter
--- NOTE | 2022-02-26 16:20 | CASEMGMT ---
Discharge Event Designer Lois went to patient bedside with and son present. would like patient to go to [facility]. Lois placed a call to [facility] to make admissions aware that family has pick their facility. Lois also sent them a message in [facility]. Will follow up in morning. Plan: [facility] Discharge Event Designer
[2022-02-27] VITALS (11 sets, daily range): BP systolic 104–159; BP diastolic 35–91; PULSE 56–119; RESP 16–18; TEMP 36.6–37; O2SAT 94–98
[2022-02-27 04:37] LABS: Hematocrit 32.2 % (37-47); Hemoglobin 10.4 g/dL (12.0-15.0); Mean Corp Hgb Conc 32.3 g/dL (32-36); Mean Corpuscular Hgb 30.1 pg (27.0-32.0); Mean Corpuscular Volume 93.3 fL (81-99); Mean Platelet Vol. 9.7 fl (6.2-12.0); POSITIVE COUNT YES; POSITIVE MORPHOLOGY YES; Platelet Count 367 K/mm3 (150-450); RBC Distribution Width CV 15.6 % (11.6-14.6); RBC Distribution Width SD 53.1 fl (35.1-43.9); Red Blood Count 3.45 M/mm3 (4.2-5.4); White Blood Count 18.1 K/mm3 (4.4-11.0)
[2022-02-27 04:38] LABS: Differential Indicated MANUAL DIFF
[2022-02-27 04:57] LABS: Lymphocyte 21 % (19-41); Metamyelocyte 1 % (0-1); Monocyte 5 % (0-10); Myelocyte 6 % (0-0); Neutrophil-Band 1 % (0-5); Neutrophil-Segmented 66 % (47-70); Platelet Estimate ADEQUATE (ADEQ); Total Cells Counted 100 (MANUAL DIFF)
[2022-02-27 04:58] LABS: Absolute Neutrophil Count 12.1 X10^3/uL (2.0-7.7); Neutrophil # 12.13 X10^3/uL (2.7-7.7); Red Cell Morphology NORM C+C NORMAL (NORM C&C)
[2022-02-27 05:06] LABS: ALB/GLOB Ratio 0.4 RATIO (0.9-2.4); AST(SGOT) 15 U/L (15-37); Alanine Aminotransfer ALT/SGPT 33 U/L (13-56); Albumin, Serum 1.9 g/dL (3.2-5.0); Alkaline Phosphatase 82 U/L (45-117); Anion Gap 5 (5-15); BUN 18 mg/dL (7-18); Calcium,Total 8.8 mg/dL (8.5-10.1); Chloride 109 mmol/L (98-107); EST Glomerular Filtration Rate 59 mL/min (>60); Est Glom Filt Rate - Afr Amer 72 mL/min (>60); Estimated Creatinine Clearance 43.45 ml/min; Globulin 4.5 g/dL (2.2-4.2); Glucose 126 mg/dL (74-106); Potassium 3.7 mmol/L (3.5-5.1); Protein, Total 6.4 g/dL (6.4-8.2); Sodium Level 138 mmol/L (136-145)
--- NOTE | 2022-02-27 07:25 | PCM.PN.HOSP ---
Subjective Subjective DOS 02/27/22 CC: Tired Pt feeling overall better, still continues to be weak. No CP or SOB, eating is sometimes better than others, no other complaints today Objective Data Objective Data Vital Signs: Vital Signs Temp Pulse Resp BP Pulse Ox O2 Del Method O2 Flow Rate 98.6 F 88 16 155/91 H 94 Room Air 96 02/27/22 04:20 02/27/22 04:20 02/27/22 04:20 02/27/22 04:20 02/27/22 04:20 02/27/22 04:20 02/27/22 03:00 Oxygen Flow Rate (L/min) 96 Oxygen Delivery Method Room Air Weight: 101.3 kg Body Mass Index (BMI) 40.1 Intake & Output: Intake and Output for Last 24 Hours 02/25/22 02/26/22 02/27/22 23:59 23:59 23:59 Intake Total 2072.92 / 2072.92 770 / 770 Output Total 1800 / 1800 1500 / 1900 1400 / 1400 Balance 272.92 / 272.92 -730 / -1130 -1400 / -1400 Lab / Micro Data Result Diagrams: 02/27/22 04:21 02/27/22 04:21 Labs: Laboratory Results - last 24 hr 02/26/22 05:50: Diff Path Review Reviewed 02/27/22 04:21: WBC 18.1 H, RBC 3.45 L, Hgb 10.4 L, Hct 32.2 L, MCV 93.3, MCH 30.1, MCHC 32.3, RDW Std Deviation 53.1 H, RDW Coeff of Gauri 15.6 H, Plt Count 367, MPV 9.7, Neut % (Auto) Not Reportable, Absolute Neuts (auto) 12.1 H, Absolute Lymphs (auto) 3.80, Total Counted 100, Neutrophils % (Manual) 66, Band Neutrophils % 1, Lymphocytes % (Manual) 21, Monocytes % (Manual) 5, Metamyelocytes % 1, Myelocytes % 6 H, Diff Path Review May foll, Platelet Estimate ADEQUATE, RBC Morphology NORM C+C 02/27/22 04:21: Sodium 138, Potassium 3.7, Chloride 109 H, Carbon Dioxide 24.0, Anion Gap 5, BUN 18, Creatinine 1.00, Estim Creat Clear Calc 43.45, Est GFR (MDRD) Af Amer 72, Est GFR (MDRD) Non-Af 59 L, BUN/Creatinine Ratio 18.0, Glucose 126 H, Calcium 8.8, Total Bilirubin 0.30, AST 15, ALT 33, Alkaline Phosphatase 82, Total Protein 6.4, Albumin 1.9 L, Globulin 4.5 H, Albumin/Globulin Ratio 0.4 L Micro: Microbiology 02/21/22 13:30 Blood Culture (Wb) - Anticubital Left Blood Culture - Final GNR lactose senior wealth advisor 02/21/22 13:50 Blood Culture (Wb) - Right Forearm Blood Culture - Final Escherichia coli 02/21/22 15:13 Urine, Midstream Urine Culture - Final Presumptive E. coli Physical Exam Const alert and no apparent distress Constitutional Narrative: Some difficulty answering orientation questions but is tired during exam HEENT normocephalic and head/scalp atraumatic Eyes Eyes Narrative: EOM grossly intact, anicteric Neck supple Resp normal respiratory effort and clear to auscultation bilaterally Cardio regular rate and regular rhythm GI soft to palpation, non-tender and non-distended GI Narrative: no suprapubic tenderness Extremity Extremity Narrative: 1+ ble edema Neuro moves all extremities Neuro Narrative: No overt focal deficits appreciated Psych Psych Narrative: Cooperative Assessment & Plan Assessment/Plan (1) UTI (urinary tract infection): (2) DANNY (acute kidney injury): (3) Sepsis: PLAN: Plan 1. Acute metabolic encephalopathy ? Secondary to acute cystitis admitted to a monitored bed for subsequent management ? 02/23/2022; patient still remains significantly encephalopathic ordered ammonia level as well as LFTs ? 02/24/2022 ammonia level and LFTs were relatively unremarkable. Patient level of sensorium however markedly improved. 02/25: continues to improve, more appropriate as the day progressed, if pt remains stable likely to skilled facility tomorrow 02/26: Improved, likely d/c to SNF today 02/27: Doing well, will need abx on d/c #Afib Seen per night team Echo this admission with EF 60% and gd 1 diastolic dysfunction With dysfunctional uterine bleeding was not started on therapeutic AC, hgb 10.6 this AM- monitoring will need to f/u with her ice cream server for further evaluation before being cleared for AC 2. Acute cystitis ? Culture sent, patient started on Rocephin ? 02/23/2022 cultures so far positive for presumptive E. coli 02/23/2022; cultures so far positive for presumptive E. coli ? 02/24/2022; patient on appropriate antibiotics 02/27: Doing well, will d/c with abx for total of 10 days of treatment 3. Sepsis- resolved ? Secondary to acute cystitis patient met criteria with evidence of an infection, WBC count greater than 12 K (23K on admission), tachycardic with heart rate greater than 132 and had evidence of endorgan damage with creatinine being greater than 2 on admission. Patient was managed per protocol. Patient progressed being monitored with serial lactic acid levels -2/2 acute cystitis, blood cultures + ecoli as was urine cx, on rocephin, improving- transition to oral for d/c 4. Hyperglycemia ? Hemoglobin A1c was ordered to either rule in or rule out diabetes mellitus type 2 ? 02/23/2022 hemoglobin A1c was 5.9, diabetes mellitus type 2 ruled out 5. Essential hypertension ? Patient is on lisinopril this was held given her impaired kidney function, placed on hydralazine as needed to keep systolic blood pressure less than 160 6. Class III obesity with BMI of 41.2 ? Weight loss advised 7. Acute kidney injury ? Suspected to be secondary to ATN from patient's infection patient on IV fluid with serial monitoring of electrolytes ordered ? 02/23/2022 kidney function remains impaired creatinine down to 1.51 ? 02/24/2022 creatinine down to 1.26 02/25: continues to improve, supportive care 02/26: Improvement continues, can f/u BMP at SNF 8. DVT prophylaxis ? SCDs and heparin 9. Physical deconditioning - Requested for PT OT eval and social services director to assist with discharge planning Plan for SNF when finances approved Charges/Coding Visit Charges Inpatient E&M: 48667 Subs Hosp L2
[2022-02-27] MEDS: Ensure Plus High Protein 120 ML LIQUID PO (09:28)
[2022-02-27] MEDS: Heparin Injection (Vial) 5,000 UNIT/ML VIAL 5000 UNIT SC (09:33)
[2022-02-27] MEDS: Ceftriaxone 1 GM/50 ML BAG IV (09:34)
[2022-02-27] MEDS: Acetaminophen 325 MG Tablet 650 MG PO (09:39)
--- NOTE | 2022-02-27 10:13 | CASEMGMT ---
Discharge Longwall Shearer Operator Lois called Angie Robles at [facility]. Patient can go to [facility] when medically ready. Family is going to follow patient down there and will submit payment when patient arrives. and Son are at bedside with patient and are all on the same page. Dr. Sam aware patient can go to [facility] when medically ready since finances are taken care of. Plan: [facility], When medically ready. Lois Choe Discharge Longwall Shearer Operator
[2022-02-27] MEDS: Metoprolol Tartrate 25 MG Tablet 12.5 MG PO (12:47)
--- NOTE | 2022-02-27 13:24 | CASEMGMT ---
Addendum entered by Lois Choe 02/27/22 14:08: Discharge Screwmaker Automatic Lois sent d/c orders and negative covid test to [facility] via [facility]. Plan: [facility] Choe Discharge Screwmaker Automatic Original Note: Discharge Screwmaker Automatic Lois d/c assistant spa director set up transportation with [facility] for a 3:00pm milk pickup driver via [employer]. Family and RN notified. Lois is waiting on d/c orders and then will send them to [facility]. Plan: [facility] Choe Discharge Screwmaker Automatic
--- NOTE | 2022-02-27 13:42 | TREXTCAR_ITS ---
Diet Diet Order/Speech Therapy: 02/22/22 10:57 Diet: Regular - General Is pt able to select menu?: No Diet Comments: soft foods- poor dentition Routine Orders/Code Status Suppository Type: Dulcolax 10mg Suppository Frequency: Daily PRN Routine Lab Work: CBC (3-5 days) and BMP (3-5 days) Therapies Physical Therapy: Eval and Treat Occupational Therapy: Eval and Treat Problem/Diagnosis (1) UTI (urinary tract infection): Status: Acute Code(s): N39.0 - Urinary tract infection, site not specified (2) DANNY (acute kidney injury): Status: Acute Code(s): N17.9 - Acute kidney failure, unspecified (3) Sepsis: Status: Acute Code(s): A41.9 - Sepsis, unspecified organism Plan 1. Acute metabolic encephalopathy 2. Afib 3. Acute cystitis 4. Sepsis- resolved 5. Hyperglycemia 6. Essential hypertension 7. Class III obesity with BMI of 41.2 8. Acute kidney injury- resolved 9. Physical deconditioning The patient is a 61 y/o F w/ PMHx: Depression and Anxiety, HTN, Hx Postmenopausal bleeding s/p D+C hysteroscopy who presented to the [facility] ED on 02/21/22 with history of onset of increased confusion, fatigue, malaise in addition to mild confusion over the past 3-4 days with reported dysuria ongoing x 1-1.5 weeks with no fever or chills reportedly however she does admit to some nausea without emesis and decreased oral intake.?She was at a preop eval for planned hysterectomy and UA was concerning along with clinical picture. In the ED she had elevated WBC with left shift and was found to have ecoli UTI as well as 2/2 bld cx positive for ecoli. She improved on rocephin and cultures demonstr ated suceptibility to cipro and she was deemed stable for transfer to SNF. Additional concerns were afib noted on tele, she was started on small dose of metoprolol BID. Echo with gd 1 diastolic function but EF 60% and no other significant abnormalities noted. AC was held d/t her post menopausal bleeding despite d&c with resultant decision for hysterectomy. Discussed with pt and family. Advised to f/u with Dr. Howard as well given need for hysterectomy. Pt also had DANNY/evidence of end organ dysfunction in the setting of her infection which has improved during her stay with improvement in her underlying condition. Allergies/Procedures Done in Hospital Allergies No Known Allergies Allergy (Verified 02/21/22 12:39) Procedures: Transthoracic Echo Type of Care/Length of Stay Estimated LOS: Convalescent Care Less Than 30 days Type of Care Needed: Intermediate Rehab Potential: Good Prognosis: Good Additional Orders/Day of Discharge Day of Discharge: 02/27/22 Dietary and Speech Recommendations Dietitian Recommendations/Changes: regular diet- soft foods per pt/family request; will continue 120mL ensure plus high protein 4x/day w/ medpass given poor PO intake. Discharge Plan Admission Admit Date/Time: 02/21/22 15:49 Primary Reason for Your Visit: Increased confusion and bladder infection Attending Provider: Cherry Sam Primary Care Provider: Lulu Conteh Consulting Providers: Kenna Beverly ; Lori Cool ; Alverto Peters Instructions Patient Instructions: Urinary Tract Infections in Women Additional Instructions / Restrictions: 1. Recommend CBC in 3-5 days to monitor hgb and WBC and assure everything is resolving 2. Would also benefit from BMP at the time to verify kidney function remains improved 3. You need to follow up with your senior windows systems administrator, Dr. Beverly, for further management of your bleeding 4. You were found to have irregular heart beat, once your bleeding is addressed you may qualify for a blood thinner, please discuss with your doctor. 5. You were placed on antibiotics for your infection that began in your bladder, please continue antibiotics for 3 more days, you will be sent out with ciprofloxacin 6. You have been started on metoprolol due to your irregular heart beat to keep it within a normal range 7. For any concerning signs or symptoms please call 911 or proceed to the nearest emergency department Discharge Orders/Prescriptions Prescriptions: New metoprolol tartrate 25 mg Tablet 12.5 mg PO BID Qty: 0 0RF Ensure Plus High Protein 0.08 gram-1.5 kcal/mL Liquid 120 ml PO 4X/DAY Qty: 0 0RF ciprofloxacin HCl 500 mg tablet 500 mg PO BID 3 Days Qty: 6 0RF Discontinued lisinopril 10 mg tablet 10 mg PO DAILY Referrals / Follow Up: Lulu Conteh, [Primary Care Provider] - Kenna Beverly MD [Med Staff - Active Staff] - In 1 Week Disposition Disposition (needs filled in before D/C Order can be placed): Intermediate Facility
[2022-02-27 13:45] LABS: Pathologist Review Reviewed
--- NOTE | 2022-02-27 14:52 | PHA.DC.MR ---
Pharmacy Service has performed discharge medication reconciliation for this patient. The patient's discharge medication list was reviewed for discrepancies and discrepancies were resolved. Home Medications ciprofloxacin HCl 500 mg tablet 500 mg PO BID 3 days #6 tabs 02/27/22 food supplemt, lactose-reduced 0.08 gram-1.5 kcal/mL oral liquid (Ensure Plus High Protein) 120 ml PO 4X/DAY #0 mL 02/27/22 metoprolol tartrate 25 mg tablet 12.5 mg PO BID #0 tabs 02/27/22
--- NOTE | 2022-02-27 14:54 | CASEMGMT ---
SW completed 7000 in [employer] system. Emily Peterson CONTINUITY MANAGER DEPUTY SHERIFF COURT SERVICES
--- NOTE | 2022-02-27 15:01 | NURSING ---
report called to the [facility], awaiting transport, family present
--- NOTE | 2022-02-27 17:40 | PCM.DC.SUM ---
Providers Date of Admission: 02/21/22 Date of Discharge: 02/27/22 Primary Care Physician: Dr. Lulu Conteh, Reason For Visit: SEPSIS, ENCEPHALOPATHY, UTI, DANNY Diagnosis Discharge Diagnosis (1) UTI (urinary tract infection): Status: Acute Code(s): N39.0 - Urinary tract infection, site not specified (2) DANNY (acute kidney injury): Status: Acute Code(s): N17.9 - Acute kidney failure, unspecified (3) Sepsis: Status: Acute Code(s): A41.9 - Sepsis, unspecified organism Plan 1. Acute metabolic encephalopathy 2. Afib 3. Acute cystitis 4. Sepsis- resolved 5. Hyperglycemia 6. Essential hypertension 7. Class III obesity with BMI of 41.2 8. Acute kidney injury- resolved 9. Physical deconditioning Medications at Discharge Home Medications ciprofloxacin HCl 500 mg tablet 500 mg PO BID 3 days #6 tabs 02/27/22 food supplemt, lactose-reduced 0.08 gram-1.5 kcal/mL oral liquid (Ensure Plus High Protein) 120 ml PO 4X/DAY #0 mL 02/27/22 metoprolol tartrate 25 mg tablet 12.5 mg PO BID #0 tabs 02/27/22 Hospital Course Procedures 2-D Echocardiogram Summary of Care Provided Minutes Spent on Discharge: 35 Hospital Course: The patient is a 61 y/o F w/ PMHx: Depression and Anxiety, HTN, Hx Postmenopausal bleeding s/p D+C hysteroscopy who presented to the [facility] ED on 02/21/22 with history of onset of increased confusion, fatigue, malaise in addition to mild confusion over the past 3-4 days with reported dysuria ongoing x 1-1.5 weeks with no fever or chills reportedly however she does admit to some nausea without emesis and decreased oral intake.?She was at a preop eval for planned hysterectomy and UA was concerning along with clinical picture. In the ED she had elevated WBC with left shift and was found to have ecoli UTI as well as 2/2 bld cx positive for ecoli. She improved on rocephin and cultures demonstrated suceptibility to cipro and she was deemed stable for transfer to SNF. Additional concerns were afib noted on tele, she was started on small dose of metoprolol BID. Echo with gd 1 diastolic function but EF 60% and no other significant abnormalities noted. AC was held d/t her post menopausal bleeding despite d&c with resultant decision for hysterectomy. Discussed with pt and family. Advised to f/u with Dr. Howard as well given need for hysterectomy. Pt also had DANNY/evidence of end organ dysfunction in the setting of her infection which has improved during her stay with improvement in her underlying condition. Weight / BMI Weight Weight: 101.3 kg Body Mass Index (BMI) 40.1 ABG / Lab / Microbiology Data Result Diagrams: 02/27/22 04:21 02/27/22 04:21 Laboratory: Laboratory Results - last 24 hr 02/27/22 04:21: WBC 18.1 H, RBC 3.45 L, Hgb 10.4 L, Hct 32.2 L, MCV 93.3, MCH 30.1, MCHC 32.3, RDW Std Deviation 53.1 H, RDW Coeff of Gauri 15.6 H, Plt Count 367, MPV 9.7, Neut % (Auto) Not Reportable, Absolute Neuts (auto) 12.1 H, Absolute Lymphs (auto) 3.80, Total Counted 100, Neutrophils % (Manual) 66, Band Neutrophils % 1, Lymphocytes % (Manual) 21, Monocytes % (Manual) 5, Metamyelocytes % 1, Myelocytes % 6 H, Diff Path Review Reviewed, Platelet Estimate ADEQUATE, RBC Morphology NORM C+C 02/27/22 04:21: Sodium 138, Potassium 3.7, Chloride 109 H, Carbon Dioxide 24.0, Anion Gap 5, BUN 18, Creatinine 1.00, Estim Creat Clear Calc 43.45, Est GFR (MDRD) Af Amer 72, Est GFR (MDRD) Non-Af 59 L, BUN/Creatinine Ratio 18.0, Glucose 126 H, Calcium 8.8, Total Bilirubin 0.30, AST 15, ALT 33, Alkaline Phosphatase 82, Total Protein 6.4, Albumin 1.9 L, Globulin 4.5 H, Albumin/Globulin Ratio 0.4 L Microbiology: Microbiology 02/27/22 13:03 Nasal Secretion SARS-CoV-2 Antigen (Rapid) - Final 02/21/22 13:30 Blood Culture (Wb) - Anticubital Left Blood Culture - Final GNR lactose economics teacher 02/21/22 13:50 Blood Culture (Wb) - Right Forearm Blood Culture - Final Escherichia coli 02/21/22 15:13 Urine, Midstream Urine Culture - Final Presumptive E. coli Meaningful Use Info Meaningful Use Diagnoses (Choose all that apply): None applicable Discharge Plan Admission Admit Date/Time: 02/21/22 15:49 Primary Reason for Your Visit: Increased confusion and bladder infection Attending Provider: Cherry Sam Primary Care Provider: Lulu Conteh Consulting Providers: Kenna Beverly ; Lori Cool ; Alverto Peters Instructions Patient Instructions: Urinary Tract Infections in Women Additional Instructions / Restrictions: 1. Recommend CBC in 3-5 days to monitor hgb and WBC and assure everything is resolving 2. Would also benefit from BMP at the time to verify kidney function remains improved 3. You need to follow up with your motion picture commentator, Dr. Beverly, for further management of your bleeding 4. You were found to have irregular heart beat, once your bleeding is addressed you may qualify for a blood thinner, please discuss with your doctor. 5. You were placed on antibiotics for your infection that began in your bladder, please continue antibiotics for 3 more days, you will be sent out with ciprofloxacin 6. You have been started on metoprolol due to your irregular heart beat to keep it within a normal range 7. For any concerning signs or symptoms please call 911 or proceed to the nearest emergency department Discharge Orders/Prescriptions Prescriptions: New metoprolol tartrate 25 mg Tablet 12.5 mg PO BID Qty: 0 0RF Ensure Plus High Protein 0.08 gram-1.5 kcal/mL Liquid 120 ml PO 4X/DAY Qty: 0 0RF ciprofloxacin HCl 500 mg tablet 500 mg PO BID 3 Days Qty: 6 0RF Discontinued lisinopril 10 mg tablet 10 mg PO DAILY Referrals / Follow Up: Lulu Conteh DO [Primary Care Provider] - Kenna Beverly MD [Med Staff - Active Staff] - In 1 Week Disposition Disposition (needs filled in before D/C Order can be placed): [facility] Facility Charges/Coding Visit Charges Inpatient E&M: 92823 Disch Hosp
== END 2022-02-27 16:28 | disposition skilled nursing facility (03) | DRG 871 ==
LOC: ED 15:55 → PCU 16:04
PROVIDERS: Hospitalist; Internal Medicine; Admitting Provider Family Medicine; Emergency Provider Emergency Medicine; PCP Family Medicine; Visit Provider Internal Medicine
DX: A41.51 Sepsis due to Escherichia coli [E. coli] (principal); G93.41 Metabolic encephalopathy; N17.0 Acute kidney failure with tubular necrosis; Z68.41 Body mass index [BMI] 40.0-44.9, adult; N30.00 Acute cystitis without hematuria; E66.01 Morbid (severe) obesity due to excess calories; I48.91 Unspecified atrial fibrillation; I10 Essential (primary) hypertension; N95.0 Postmenopausal bleeding; N85.00 Endometrial hyperplasia, unspecified; R73.9 Hyperglycemia, unspecified; Z79.899 Other long term (current) drug therapy
CPT/HCPCS: 36415; 80048; 80053; 80076; 81001; 82140; 83036; 83605; 83735; 84443; 85025; 87040; 87086; 87088; 87186; 87426; 93005; 93306; 94640; 94762; 97110; 97116; 97162; 97166; 97530; 97535; 97802; 97803; 99251; 99284; J7030; Q9957; A4216; G0463; J2405

== ENCOUNTER 2022-04-02 14:06 | Day surgery (SDC) | payer SELFPAY, OTHER ==
[2022-04-09 09:02] VITALS: BP 151/95; PULSE 112; RESP 16; TEMP 37.2; O2SAT 96; BMI 44.1
[2022-04-09 09:08] LABS: Hematocrit 39.5 % (37-47); Hemoglobin 12.5 g/dL (12.0-15.0); Mean Corp Hgb Conc 31.6 g/dL (32-36); Mean Corpuscular Hgb 30.3 pg (27.0-32.0); Mean Corpuscular Volume 95.6 fL (81-99); Mean Platelet Vol. 9.8 fl (6.2-12.0); Platelet Count 288 K/mm3 (150-450); RBC Distribution Width SD 60.2 fl (35.1-43.9); Red Blood Count 4.13 M/mm3 (4.2-5.4); White Blood Count 27.8 K/mm3 (4.4-11.0)
[2022-04-09] MEDS: Enoxaparin 40 MG/0.4 ML Syringe SC (09:16)
[2022-04-09] MEDS: Magnesium 1 GM over 15 mins IV (09:19)
[2022-04-09] MEDS: Acetaminophen 500 MG Tablet 1000 MG PO (09:19)
[2022-04-09] MEDS: Lactated Ringers 1,000 ML 40 ML IV (09:19)
[2022-04-09] MEDS: Celecoxib 200 MG Capsule 400 MG PO (09:19)
[2022-04-09] MEDS: Gabapentin 600 MG Tablet PO (09:19)
[2022-04-09] MEDS: Scopolamine 1mg/72hr Patch 1 PATCH TD (09:19)
[2022-04-09] MEDS: Phenazopyridine 95 MG Tablet 190 MG PO (09:19)
--- NOTE | 2022-04-09 09:19 | PCM.HP.STD ---
HPI - General HPI Narrative ANN PADILLA, is a 62 F who presents for hysterectomy for PMB and complex hyperplasia without atypia. she recently had urosepsis and was admitted to the ICU but has since recovered and is ready for surgery. [facility] Medical History (Updated 04/08/22 @ 10:25 by Christin Tristan) Anemia Anxiety Arthritis Bladder disease Depression History of atrial fibrillation History of echocardiogram History of edema History of pain when walking Hypertension Non-smoker Walker as ambulation aid Wears dentures Home Medications metoprolol tartrate 25 mg tablet 12.5 mg PO BID #0 tabs 02/27/22 [Rx Last Taken Unknown] buspirone 7.5 mg tablet 7.5 mg PO BID 04/08/22 [History Last Taken 04/05/22] Allergy/AdvReac Type Severity Reaction Status Date / Time No Known Allergies Allergy Verified 04/09/22 08:42 Family History Father Heart disease Mother CVA (cerebral vascular accident) Surgical History (Updated 04/08/22 @ 10:25 by Christin Tristan) H/O dilation and curettage Social History (Updated 02/21/22 @ 15:[address] Lori Cool MD) household members: spouse Smoking Status: Never smoker alcohol intake: never substance use type: does not use caffeine: Yes what type of physical activity do you participate in: none additional social history: - Brooks KAMARA Constitutional Constitutional: Reports systems reviewed and no addt'l complaints, except as documented; Denies as per HPI, change in weight, fatigue, fever(s), malaise, weakness or other Eyes Eyes: Reports systems reviewed and no addt'l complaints, except as documented; Denies as per HPI, change in vision or other ENT HEENT: Reports systems reviewed and no addt'l complaints, except as documented Respiratory/Chest Respiratory/Chest: Reports systems reviewed and no addt'l complaints, except as documented Gastrointestinal Gastrointestinal: Reports systems reviewed and no addt'l complaints, except as documented and as per HPI Genitourinary Genitourinary: Reports as per HPI Musculoskeletal Musculoskeletal: Reports systems reviewed and no addt'l complaints, except as documented Neurologic Neurologic: Reports systems reviewed and no addt'l complaints, except as documented Psychiatric Psychiatric: Reports systems reviewed and no addt'l complaints, except as documented Endocrine Endocrinology: Reports systems reviewed and no addt'l complaints, except as documented Hematologic/Lymphatic Hematologic/Lymphatic: Reports systems reviewed and no addt'l complaints, except as documented Vital Signs Vital Signs Vital Signs: 04/09/22 09:02 04/09/22 09:13 Temperature 99 F Temperature Source Temporal Pulse Rate 112 H Respiratory Rate 16 Respiratory Pattern Normal Blood Pressure 151/95 H Blood Pressure Mean 113 Blood Pressure Source Monitor Blood Pressure Position Semi-Fowlers Blood Pressure Location Left Arm Pulse Ox 96 Oxygen Delivery Method Room Air Weight Weight: 234 lb Body Mass Index (BMI) 44.1 Physical Exam Const alert, oriented x3 and no apparent distress HEENT normocephalic Head and Scalp: atraumatic Eyes EOMs intact bilaterally and conjunctivae normal Neck full ROM, no lymphadenopathy, supple and thyroid normal General: trachea midline Lymph Lymphatic: no lymphadenopathy noted Resp normal respiratory effort, no retractions, no use of accessory muscles and clear to auscultation bilaterally Cardio regular rhythm GI normal to inspection, nondistended, normoactive bowel sounds, soft to palpation, non-distended and no masses Inspection: Negative for abdominal distention Back/Spine no CVA tenderness Extremity normal to inspection Skin no rashes or lesions noted Neuro moves all extremities and deep tendon reflexes 2+ bilaterally Psych mental status grossly normal Results Lab / Micro Data Result Diagrams: 04/09/22 08:55 04/09/22 08:55 Labs: Laboratory Results - last 24 hr 04/09/22 08:55: WBC 27.8 H, RBC 4.13 L, Hgb 12.5, Hct 39.5, MCV 95.6, MCH 30.3, MCHC 31.6 L, RDW Std Deviation 60.2 H, RDW Coeff of Gauri 17.0 H, Plt Count 288, MPV 9.8 Assessment & Plan Assessment/Plan (1) Postmenopausal bleeding: (2) Complex endometrial hyperplasia: PLAN: Plan After discussing the patient's diagnosis and treatment plan options, patient wishes to proceed with surgical management. I have discussed with the patient the risks, benefits, and alternatives of the procedure which include but are not limited to risks of anesthesia, bleeding, infection, possible damage to bowel, bladder, or surrounding vasculature which could lead to additional surgery to evaluate any complications. Patient agrees to procedure and wishes to proceed. ACOG/uptodate references given for additional information regarding procedure.
[2022-04-09 09:20] LABS: Bedside Glucose 173 mg/dL (74-106)
[2022-04-09 09:23] LABS: ALB/GLOB Ratio 0.6 RATIO (0.9-2.4); AST(SGOT) 64 U/L (15-37); Alanine Aminotransfer ALT/SGPT 225 U/L (13-56); Albumin, Serum 3.2 g/dL (3.2-5.0); Alkaline Phosphatase 105 U/L (45-117); Anion Gap 6 (5-15); BUN 14 mg/dL (7-18); BUN/Creat Ratio 10.7 RATIO (10-20); Calcium,Total 9.7 mg/dL (8.5-10.1); Chloride 112 mmol/L (98-107); Creatinine, Serum 1.31 mg/dL (0.55-1.02); EST Glomerular Filtration Rate 43 mL/min (>60); Est Glom Filt Rate - Afr Amer 53 mL/min (>60); Estimated Creatinine Clearance 32.74 ml/min; Glucose 178 mg/dL (74-106); Magnesium 2.1 mg/dL (1.6-2.6); Potassium 3.7 mmol/L (3.5-5.1); Protein, Total 8.2 g/dL (6.4-8.2); Sodium Level 141 mmol/L (136-145)
[2022-04-09 10:10] LABS: Mucous, Urine 0 SEEN /hpf (<or=2+); Red Blood Cells-Urine 0 SEEN /hpf (0-5); Squamous Epithelial Cells - UA 0 SEEN /hpf (5-10)
[2022-04-09 10:13] LABS: Color, Urine Yellow (Yellow); Glucose, Dipstick 50 mg/dl (Normal); Ketone-Dipstick 5 mg/dl (Negative); Leukocyte Esterase-Dipstick 500 /ul (Negative); Nitrite-Dipstick Positive (Negative); Occult Blood-Urine 10 /ul (Negative); Protein-Dipstick 100 mg/dl (Negative); Specific Gravity, Urine 1.025 (1.002-1.030); Urine Bilirubin Dipstick Negative (Negative); Urine Clarity Cloudy (Clear); Urine Urobilinogen Normal (Normal)
[2022-04-09 10:22] LABS: Bacteria 2+ /hpf (None Seen); White Blood Cells 50-100 SEEN /hpf (0-5)
--- NOTE | 2022-04-09 10:35 | SUR.PREOP ---
scopolamine patch removed due to surgery being cancelled
--- NOTE | 2022-04-09 10:48 | PCM.CONS.GEN ---
Assessment & Plan Assessment/Plan (1) UTI (urinary tract infection): PLAN: Patient previously has had very sensitive E. coli in the past. I feel would be appropriate to send the patient home with 5 days of nitrofurantoin. Scription has been sent to her [facility] in [place] (2) Abnormal liver enzymes: PLAN: Unclear significance. Patient denies any abdominal pain. This is a new change from last month. Recommend follow-up with her primary care doctor to have repeat labs drawn. (3) Leukocytosis: PLAN: Seems be chronic since last months that would not is high when she initially presented but higher than it had been when she was discharged. Patient is not septic And outpatient follow-up PLAN: Plan Hyper tension: Continue with the metoprolol Thank you the consult. Patient medically stable for discharge. HPI Consult Data Date of Consult: 04/09/22 HPI Narrative Reason for Consultation: abnormal labs. HPI Narrative: ANN PADILLA, is a 62 F who presents for hysterectomy with Dr. Beverly. Patient had some lab work that was unremarkable with count of 27.8 thousand, creatinine of 1.3, AST of 64 and ALT of 225. Patient does not get historian primarily field because she tries to minimize her symptoms but the states that she, over the past few days, has been having urinary frequency and patient does admit to having some dysuria. Patient was not have any fever or chills. Patient did subsequently have a urinalysis that that was positive for urinary tract infection with 500 leukoesterase, 5100 white blood cells and 2+ bacteria. [facility] Medical History Anemia Anxiety Arthritis Bladder disease Depression History of atrial fibrillation History of echocardiogram History of edema History of pain when walking Hypertension Non-smoker Walker as ambulation aid Wears dentures Home Medications metoprolol tartrate 25 mg tablet 12.5 mg PO BID #0 tabs 02/27/22 [Rx Last Taken Unknown] buspirone 7.5 mg tablet 7.5 mg PO BID 04/08/22 [History Last Taken 04/05/22] nitrofurantoin monohydrate/macrocrystals 100 mg capsule (Macrobid) 100 mg PO BID #10 caps 04/09/22 [Rx Last Taken Unknown] Allergy/AdvReac Type Severity Reaction Status Date / Time No Known Allergies Allergy Verified 04/09/22 08:42 Family History Father Heart disease Mother CVA (cerebral vascular accident) Surgical History H/O dilation and curettage Social History household members: spouse Smoking Status: Never smoker alcohol intake: never substance use type: does not use caffeine: Yes what type of physical activity do you participate in: none additional social history: - Brooks KAMARA Narrative Chronically cold. All review of systems were negative except as mentioned above in the history of present illness and the other review of systems. Physical Exam Const alert and no apparent distress Constitutional Narrative: flat affect. Afebrile Resp normal respiratory effort, no retractions, no use of accessory muscles and clear to auscultation bilaterally Cardio regular rate, regular rhythm, S1 normal heart sound and S2 normal heart sound GI normal to inspection, nondistended, normoactive bowel sounds and soft to palpation Extremity normal to inspection Neuro Sensorium / Orientation: awake and alert Lab / Micro Data Result Diagrams: 04/09/22 08:55 04/09/22 08:55 Labs: Laboratory Results - last 24 hr 04/09/22 08:55: Sodium 141, Potassium 3.7, Chloride 112 H, Carbon Dioxide 23.0, Anion Gap 6, BUN 14, Creatinine 1.31 H, Estim Creat Clear Calc 32.74, Est GFR (MDRD) Af Amer 53 L, Est GFR (MDRD) Non-Af 43 L, BUN/Creatinine Ratio 10.7, Glucose 178 H, Calcium 9.7, Magnesium 2.1, Total Bilirubin 0.70, AST 64 H, ALT 225 H, Alkaline Phosphatase 105, Total Protein 8.2, Albumin 3.2, Globulin 5.0 H, Albumin/Globulin Ratio 0.6 L 04/09/22 08:55: WBC 27.8 H, RBC 4.13 L, Hgb 12.5, Hct 39.5, MCV 95.6, MCH 30.3, MCHC 31.6 L, RDW Std Deviation 60.2 H, RDW Coeff of Gauri 17.0 H, Plt Count 288, MPV 9.8 04/09/22 08:55: Blood Type A NEGATIVE, Antibody Screen NEGATIVE 04/09/22 09:01: POC Glucose 173 H 04/09/22 10:05: Urine Color Yellow, Urine Clarity Cloudy, Urine pH 5.0, Ur Specific [place] 1.025, Urine Protein 100 H, Urine Glucose (UA) 50 H, Urine Ketones 5 H, Urine Occult Blood 10 H, Urine Nitrite Positive H, Urine Bilirubin Negative, Urine Urobilinogen Normal, Ur Leukocyte Esterase 500 H, Urine RBC 0 SEEN, Urine WBC 50-100 SEEN, Ur Squamous Epith Cells 0 SEEN, Urine Bacteria 2+, Urine Mucus 0 SEEN Charges/Coding Visit Charges Office Visits / Consults: [id number] OP Consult L3
== END 2022-04-02 23:59 | disposition home or self-care (01) ==
PROVIDERS: Anesthesiology; PCP Family Medicine; Referring Provider Obstetrics & Gynecology; Visit Provider Obstetrics & Gynecology
DX: Z01.818 Encounter for other preprocedural examination (principal); N95.0 Postmenopausal bleeding; N85.01 Benign endometrial hyperplasia; Z53.9 Procedure and treatment not carried out, unspecified reason; I10 Essential (primary) hypertension; N39.0 Urinary tract infection, site not specified; Z79.899 Other long term (current) drug therapy
CPT/HCPCS: 58552; 80053; 81001; 82962; 83735; 85027; 86850; 86900; 86901; 87077; 87086; 87088; 87186; J7120; J2405; J3475